=== PATIENT | female | born 1985 | race Caucasian/White ===

== ENCOUNTER 2023-06-24 08:20 | Outpatient (OUT) | payer BC, SELFPAY ==
[2023-06-24 08:45] LABS: Basophils Percent Auto 0.6 % (0.2-2.0); Eosinophils Absolute Auto 0.2 10^3/uL (0.0-0.7); Eosinophils Percent Auto 2.4 % (0.9-7.0); Hematocrit 39.6 % (36.0-48.0); Immature Granulocytes Abs Auto 0.01 10^3/uL (0.00-0.03); Immature Granulocytes Pct Auto 0.1 % (0.0-0.5); Lymphocytes Absolute Auto 2.5 10^3/uL (1.2-3.8); Mean Corpuscular HGB Conc 32.8 g/dL (29.9-35.2); Mean Corpuscular Hemoglobin 28.1 pg (26.7-34.0); Mean Corpuscular Volume 85.5 fL (81.0-99.0); Mean Platelet Volume 9.8 fL (9.5-13.5); Monocytes Absolute Auto 0.6 10^3/uL (0.3-0.8); Monocytes Percent Auto 8.5 % (1.7-12.0); Neutrophils Absolute Auto 3.6 10^3/uL (1.4-6.5); Neutrophils Percent Auto 52.4 % (43.0-75.0); Platelet Count 255 10^3/uL (150-450); Red Blood Count 4.63 10^6/uL (4.20-5.40); Red Cell Distribution Width 12.1 % (11.0-15.0); White Blood Count 6.9 10^3/uL (4.0-11.0)
[2023-06-24 09:07] LABS: Alanine Aminotransferase 14 U/L (14-59); Albumin Globulin Ratio 0.9; Albumin Level 3.6 g/dL (3.4-5.0); Alkaline Phosphatase 82 U/L (46-116); Anion Gap 10.5; Aspartate Amino Transferase 13 U/L (15-37); BUN Creatinine Ratio 16.4; Bilirubin Total 0.6 mg/dL (0.2-1.0); Calcium 8.9 mg/dL (8.5-10.1); Carbon Dioxide 30.6 mmol/L (21.0-32.0); Chloride 102 mmol/L (98-107); Chol HDL Ratio 3.8; Cholesterol 183 mg/dL (<=200); Estimated GFR (African America >60 (>=60); Estimated GFR (Non-African Ame >60 (>=60); Glucose 82 mg/dL (74-106); HDL Cholesterol 48 mg/dL (40-60); LDL Cholesterol Calculated 117.6 mg/dL; Potassium 4.1 mmol/L (3.5-5.1); Sodium 139 mmol/L (136-145); Thyroid Stimulating Hormone 1.955 uIU/mL (0.358-3.740); Total Protein 7.6 g/dL (6.4-8.2); Triglycerides 87 mg/dL (<=150); VLDL CHOLESTEROL 17.4 mg/dL
== END 2023-06-24 08:21 | disposition home or self-care (01) ==
LOC: LAB 08:24
PROVIDERS: PCP Family Medicine; Visit Provider Family Medicine
DX: Z00.00 Encounter for general adult medical examination without abnormal findings (principal)
CPT/HCPCS: 36415; 80053; 80061; 84443; 85025

== ENCOUNTER 2023-07-05 20:07 | Outpatient (REF) | payer BC, SELFPAY ==
--- OUTSIDE RECORDS SUMMARY | 2023-07-05 20:11 | XMS_ITS | CCD ---
Author Organization [facility] Care Team Providers Care Body Liner Name Role Phone Louie Wenier Unavailable FAWWAD, HERNANDEZ H Admitting Unavailable FAWWAD, HERNANDEZ H Attending Unavailable REGINE, DR DENITA Silverio Primary Care Unavailable LOI, DR HERNANDEZ Funez Consulting Unavailable FAWWAD, HERNANDEZ H Consulting Unavailable FAWWAD, HERNANDEZ H Admitting Unavailable FAWWAD, HERNANDEZ H Attending Unavailable REGINE, DR DENITA Silverio Primary Care Unavailable FAWWAD, HERNANDEZ H Admitting Unavailable FACESARIO, H Attending Unavailable REGINE, DR DENITA Silverio Primary Care Unavailable REGINE, DR DENITA Silverio Primary Care Unavailable NEVA, DR ANDREW Admitting Unavailable NEVA, DR ANDREW Attending Unavailable THEA VELEZ Consulting Unavailable DONIS, NEELA Admitting Unavailable DONISNEELA Attending Unavailable REGINE, DR DENITA Silverio Primary Care Unavailable DONIS, NEELA Consulting Unavailable REGINE, DR DENITA Silverio Primary Care Unavailable DONIS, NEELA Admitting Unavailable DONIS, NEELA Attending Unavailable DONIS, NEELA Consulting Unavailable REGINE, DR DENITA Silverio Primary Care Unavailable ANDI QUEVEDO Consulting Unavailable DONIS, NEELA Admitting Unavailable DONIS, NEELA Attending Unavailable DONIS, NEELA Consulting Unavailable REGINE, DR DENITA Silverio Admitting Unavailable REGINE, DR DENITA Silverio Attending Unavailable REGINE, DR DENITA Silverio Primary Care Unavailable REGINE, DR DENITA Silverio Admitting Unavailable REGINE, DR DENITA Silverio Attending Unavailable REGINE, DR DENITA Silverio Primary Care Unavailable REGINE, DR DENITA Silverio Consulting Unavailable CHADD, DR TABARES Admitting Unavailable CHADD, DR TABARES Attending Unavailable REGINE, DR DENITA Silverio Primary Care Unavailable CHADD, DR TABARES Consulting Unavailable Medications Current Medications Medication Drug Class(es) Dates Sig (Normalized) Sig (Original) sodium fluoride 0.011 mg/mg toothpaste (1 source) Sodium Fluoride 5000 PPM 1.1 % Not Available Dental for 30 Days Active Completed/Discontinued Medications Medication Drug Class(es) Dates Sig (Normalized) Sig (Original) acetaminophen 325 mg / oxyCODONE hydrochloride 5 mg oral tablet (1 source) Opioid Agonist take 1 tablet by travon th three times daily as needed for pain oxyCODONE-Acetamino phen 5-325 MG TAKE 1 TABLET BY MOUTH THREE TIMES A DAY NEEDED FOR PAIN Oral for 5 Days Not-Taking Problems Active Problems Problem Classification Problem Date Documented Date Episodic/Chronic Immunizations and screening for infectious disease (1 source) Encounter for screening for human papillomavirus (HPV); Translations: [ENC SCREENING HUMAN PAPILLOMAVIRUS] Onset: 01-21-2022 Episodic Other screening for suspected conditions (not mental disorders or infectious disease) (4 sources) Encounter for screening for malignant neoplasm of cervix; Translations: [ENC SCREENING MALIG NEOPLASM CERV] Onset: 01-20-2022 Episodic Spondylosis; intervertebral disc disorders; other back problems (4 sources) Inflammation of sacroiliac joint; Translations: [Sacroiliitis, not elsewhere classified] Onset: 03-21-2021 Resolved: 07-07-2021 Chronic Unclassified (4 sources) LOW BACK PAIN, UNSPECIFIED; Translations: [LOW BACK PAIN, UNSPECIFIED] Onset: 09-16-2021 Past or Other Problems Problem Classification Problem Date Documented Date Episodic/Chronic Other acquired deformities (1 source) Spondylolysis; Translations: [Spondylolysis, lumbar region] Episodic Spondylosis; intervertebral disc disorders; other back problems (5 sources) Sacrococcygeal disorders, not elsewhere classified; Translations: [SACROCOCCYGEAL DISORDERS NEC] Onset: 09-16-2021 Episodic Unclassified (1 source) Acute bilateral low back pain without sciatica M54.50 Onset: 07-07-2021 Resolved: 07-07-2021 Unclassified (1 source) LOW BACK PAIN, UNSPECIFIED; Translations: [LOW BACK PAIN, UNSPECIFIED] Onset: 09-11-2021 Results Test Name Value Interpretation Reference Range Facil ity PAP ACOG PANEL 2: 30 to 65on 01-27-2022 . . Normal [facility] Comment on above: Result Comment: Perf ormed at: BA Performed By: #### [id number] #### [facility] [address] [place] [address] Dr. Philip Todd DIAGNOSIS: Comment Normal [facility] Comment on above: Result Comment: NEGA TIVE FOR INTRAEPITHELIAL LESION OR MALIGNANCY. Performed at: BA Performed By: #### [id number] #### [facility] [address] [place] [address] Dr. Philip Todd HPV Aptima Negative Normal Negative [facility] Comment on above: Result Comment: This nucleic acid amplification test detects fourteen high-risk HPV types (16,18,31,33,35,39,45,51,52,56,58,59,66,68) without differentiation. Performed at: =G Performed By: #### [id number] #### [facility] [address] [place] [address] Dr. Philip Todd Methodology: Comment Normal [facility] Comment on above: Result Comment: This liquid based ThinPrep(R) pap test was screened with the use of an image guided system. Performed at: WB Performed By: #### [id number] #### [facility] [address] [place] [address] Dr. Philip Todd Note: Comment Normal [facility] Comment on above: Result Comment: The Pap smear is a screening test designed to aid in the detection of premalignant and malignant conditions of the uterine cervix. It is not a diagnostic procedure and should not be used as the sole means of detecting cervical cancer. Both false-positive and false-negative reports do occur. . Performed at: WB Performed By: #### [id number] #### [facility] [address] [place] [address] Dr. Philip Todd Performed by: Comment Normal [facility] [place] [facility] Comment on above: Result Comment: Karthik Bhatt, Starch Dumper (ASCP) Performed at: BA Performed By: #### [id number] #### [facility] [address] [place] [address] Dr. Philip Todd Specimen adequacy: Comment Normal [facility] Comment on above: Result Comment: Sati sfactory for evaluation. Endocervical and/or squamous metaplastic cells (endocervical component) are present. Performed at: BA Performed By: #### [id number] #### [facility] [address] [place], [place] [address] Dr. Philip Todd Age Gdln ACOG Testing 30-65 Normal [facility] Comment on above: Performed By: #### [id number] #### [facility] [address] [place], [place] [address] Dr. Philip Todd PREG HCG QUALon 09-11-2021 , QUAL Negative Normal NEGATIVE [facility] Comment on above: Performed By: #### P REG #### [facility] [address] [place], [place] [address] Dr. Philip Todd MRI Lumbar Spine w/oon 06-10 MRI Lumbar Spine w/o HISTORY: TECHNIQUE: Routine lumbosacral spine MR protocol WITHOUT gadolinium. COMPARISON: None. RESULT: Counting reference: Lumbosacral junction. For the purposes of this report, L5-S1 is considered the last well-formed disc space. Alignment: Alignment is anatomic. Disks: The intervertebral disk spaces are maintained from L1-L5. There is disc desiccation and mild disc space narrowing at L5-S1. Bone marrow signal/fracture: No evidence of pathologic marrow infiltration. No evidence of prior fracture. Conus: The conus is within normal limits of signal intensity and morphology. Paraspinal soft tissues: Paraspinal soft tissues are within normal limits. Lower thoracic spine: Visualized lower thoracic canal and foramina are without significant narrowing. T12-L1: No significant canal or foraminal narrowing. L1-L2: No significant canal or foraminal narrowing. L2-L3: No significant canal or foraminal narrowing. L3-L4: No significant canal or foraminal narrowing. L4-L5: No significant canal or foraminal narrowing. There is mild bilateral facet arthrosis. L5-S1: There is a 5 mm symmetric base bulge and there are annular fissures. There is mild bilateral facet arthrosis and mild ligamentum flavum hypertrophy of mild central canal and mild bilateral neuroforaminal narrowing. Sacrum and iliac wings: The visualized sacrum and iliac wings are within normal limits. The presacral soft tissues are normal in appearance. IMPRESSION: There is no acute fracture subluxation. There is spondylosis at L5-S1 with disc desiccation, mild narrowing, annular fissures and mild bilateral facet arthrosis. There is no significant central canal or neural foramina at any level. Report reported and signed by NITZA TIAN on 06/10/2021 1452 Normal [facility] Corporate Wellness Coordinator CBC AUTO DIFFon 06-04-2021 BASO # 0.0 103/ul Normal 0.0-0.1 [facility] Comment on above: Performed By: #### C BC #### [facility] [address] [place] [address] [address] Philip Todd Basophils/100 WBC (Bld) 0.4 % Normal 0.2-2.0 [facility] Comment on above: Performed By: #### C BC #### [facility] [address] [place] [address] [address] Philip Todd EO # 0.2 103/ul Normal 0.0-0.7 [facility] Comment on above: Performed By: #### C BC #### [facility] [address] [place] [address] [address] Philip Todd Eosinophils/100 WBC (Bld) 2.5 % Normal 0.9-7.0 [facility] Comment on above: Performed By: #### C BC #### [facility] [address] [place] [address] [address] Philip Todd Erythrocyte distribution width (RBC) [Ratio] 12.5 % Normal 11.0-15.0 [facility] Comment on above: Performed By: #### C BC #### [facility] [address] [place] [address] [address] Philip Todd Hematocrit (Bld) [Volume fraction] 42.1 % Normal 36.0-48.0 [facility] Comment on above: Performed By: #### C BC #### [facility] [address] [address] [address] Philip Todd Hemoglobin (Bld) [Mass/Vol] 13.9 g/dL Normal 12.0-16.0 [facility] Comment on above: Performed By: #### C BC #### [facility] [address] [address] [address] Philip Todd IG # 0.01 10e3/ul Normal 0.00-0.03 [facility] Comment on above: Performed By: #### C BC #### [facility] [address] [place] [address] Dr. Philip Todd IG % 0.1 % Normal 0.0-0.5 [facility] Comment on above: Performed By: #### C BC #### [facility] [address] [place] [address] Dr. Philip Todd LYMPH # 2.5 103/ul Normal 1.2-3.8 [facility] Comment on above: Performed By: #### C BC #### [facility] [address] [place] [address] Dr. Philip Todd Lymphocytes/100 WBC (Bld) 34.7 % Normal 20.5-60.0 [facility] Comment on above: Performed By: #### C BC #### [facility] [address] [place] [address] Dr. Philip Todd MANUAL DIFF REQ NO Normal [facility] Comment on above: Performed By: #### C BC #### [facility] [address] [place] [address] Dr. Philip Todd MCH (RBC) [Entitic mass] 28.2 pg Normal 26.7-34.0 [facility] Comment on above: Performed By: #### C BC #### [facility] [address] [place] [address] Dr. Philip Todd MCHC (RBC) [Mass/Vol] 33.0 g/dL Normal 29.9-35.2 [facility] Comment on above: Performed By: #### C BC #### [facility] [address] [place] [address] Dr. Philip Todd MCV (RBC) [Entitic vol] 85.4 fL Normal 81.0-99.0 [facility] Comment on above: Performed By: #### C BC #### [facility] [address] [place] [address] Dr. Philip Todd MONO # 0.6 103/ul Normal 0.3-0.8 [facility] Comment on above: Performed By: #### C BC #### [facility] [address] [address] [address] Philip Todd Monocytes/100 WBC (Bld) 8.5 % Normal 1.7-12.0 [facility] Comment on above: Performed By: #### C BC #### [facility] [address] [place] [address] Dr. Philip Todd NEUT # 3.9 103/ul Normal 1.4-6.5 [facility] Comment on above: Performed By: #### C BC #### [facility] [address] [place] [address] Dr. Philip Todd Neutrophils/100 WBC (Bld) 53.8 % Normal 43.0-75.0 [facility] Comment on above: Performed By: #### C BC #### [facility] [address] [place] [address] Dr. Philip Todd Platelet mean volume (Bld) [Entitic vol] 10.0 fL Normal 9.5-13.5 [facility] Comment on above: Performed By: #### C BC #### [facility] [address] [place] [address] Dr. Philip Todd PLT 282 103/ul Normal 150-450 [facility] Comment on above: Performed By: #### C BC #### [facility] [address] [place] [address] Dr. Philip Todd RBC 4.93 106/ul Normal 4.20-5.40 [facility] Comment on above: Performed By: #### C BC #### [facility] [address] [place] [address] Dr. Philip Todd WBC 7.3 103/ul Normal 4.0-11.0 [facility] Comment on above: Performed By: #### C BC #### [facility] [address] [place] [address] Dr. Philip Todd LIPID PROFILEon 06-04-2021 CHOL-HDL RATIO NORM SEE BELOW Normal [facility] Comment on above: Result Comment: 3.3 - 4.4 LOW RISK 4.4 - 7.1 AVERAGE RISK 7.1 - 11.0 MODERATE RISK >11.0 HIGH RISK Performed By: #### L IPID, BMP #### [facility] [address] [place] [address] Dr. Philip Todd Cholesterol [Mass/Vol] 200 mg/dL Normal <=200 [facility] Comment on above: Performed By: #### L IPID, BMP #### [facility] [address] [address] [address] Philip Todd Cholesterol in HDL [Mass/Vol] 52 mg/dL Normal [facility] Comment on above: Performed By: #### L IPID, BMP #### [facility] [address] [place] [address] Dr. Philip Todd Cholesterol in LDL [Mass/Vol] 131.6 mg/dL Normal [facility] Comment on above: Performed By: #### L IPID, BMP #### [facility] [address] [place] [address] Dr. Philip Todd Cholesterol.total/ Cholesterol in HDL [Mass ratio] 3.8 {ratio} Normal [facility] Comment on above: Performed By: #### L IPID, BMP #### [facility] [address] [place] [address] Dr. Philip Todd HDL NORMAL > or = 60 mg/dl - LO W CARDIOVASCULAR RISK <40 mg/dl - HIGH CARDIOVASCULAR RISK Normal [facility] Comment on above: Performed By: #### L IPID, BMP #### [facility] [address] [place] [address] Dr. Philip Todd LDL CALC NORMAL SEE BELOW Normal [facility] Comment on above: Result Comment: <100 mg/dl OPTIMAL 100 - 129 mg/dl NEAR OR ABOVE OPTIMAL 130 - 159 mg/dl BORDERLINE HIGH 160 - 189 mg/dl HIGH >190 mg/dl VERY HIGH Performed By: #### L IPID, BMP #### [facility] [address] [place] [address] Dr. Philip Todd Triglyceride [Mass/Vol] 82 mg/dL Normal <=150 [facility] Comment on above: Performed By: #### L IPID, BMP #### [facility] [address] [place] [address] Dr. Philip Todd VLDL CALC 16.4 mg/dL Normal [facility] Comment on above: Performed By: #### L IPID, BMP #### [facility] [address] [place] [address] Dr. Philip Todd PROF CHEM 8 (BAS METB)on Anion gap [Moles/Vol] 13.6 mmol/L Normal [facility] Comment on above: Performed By: #### L IPID, BMP #### [facility] [address] [place] [address] Dr. Philip Todd Calcium [Mass/Vol] 9.6 mg/dL Normal 8.4-10.2 [facility] Comment on above: Performed By: #### L IPID, BMP #### [facility] [address] [place] [address] Dr. Philip Todd Chloride [Moles/Vol] 103 mmol/L Normal 98-107 [facility] Comment on above: Performed By: #### L IPID, BMP #### [facility] [address] [place] [address] Dr. Philip Todd CO2 [Moles/Vol] 28.4 mmol/L Normal 22.0-30.0 [facility] Comment on above: Performed By: #### L IPID, BMP #### [facility] [address] [place] [address] Dr. Philip Todd Creatinine [Mass/Vol] 0.65 mg/dL Normal 0.52-1.04 [facility] Comment on above: Performed By: #### L IPID, BMP #### [facility] [address] [place] [address] Dr. Philip Todd EGFR-AF BHUTANESE >60 Normal >=60 [facility] Comment on above: Performed By: #### L IPID, BMP #### [facility] [address] [place] [address] Dr. Philip Todd EGFR-NON AF BHUTANESE >60 Normal >=60 [facility] Comment on above: Performed By: #### L IPID, BMP #### [facility] [address] [place] [address] [address] Philip Todd Glucose [Mass/Vol] 94 mg/dL Normal 74-106 [facility] [place] [facility] Comment on above: Performed By: #### L IPID, BMP #### [facility] [address] [place] [address] Dr. Philip Todd Potassium [Moles/Vol] 4.0 mmol/L Normal 3.4-5.0 [facility] Comment on above: Performed By: #### L IPID, BMP #### [facility] [address] [place] [address] [address] Philip Todd Sodium [Moles/Vol] 141 mmol/L Normal 137-145 [facility] Comment on above: Performed By: #### L IPID, BMP #### [facility] [address] [place] [address] Dr. Philip Todd Urea nitrogen [Mass/Vol] 15.0 mg/dL Normal 7.0-17.0 [facility] Comment on above: Performed By: #### L IPID, BMP #### [facility] [address] [place] [address] Dr. Philip Todd Urea nitrogen/Creatinin e [Mass ratio] 23.1 mg/mg Normal [facility] Comment on above: Performed By: #### L IPID, BMP #### [facility] [address] [place] [address] Dr. Philip Todd XR LSPINE 2_3 VIEWSon 2020 XR LSPINE 2_3 VIEWS EXAMINATION: XR LSPINE 2_3 VIEWS HISTORY: Low back pain for one week increasing in severity COMPARISON: No relevant comparison available. FINDINGS: BONES: No significant spondylosis, scoliosis, fracture, or visible bony lesion. DISC SPACES: Slight narrowing L5-S1. PARASPINOUS: Negative. No paraspinous abnormality is seen. OTHER: Negative. IMPRESSION: 1. L5-S1 mild degenerative disc disease. 2. No appreciable acute abnormality. Electronically authenticated by: HERNANDEZ MONSIVAIS Date: 2021-03-18 07:23 Normal [facility] Vital Signs Date Time Vital Sign Value Performing Clinician Faci lity 07-07-2021 11:00-0400 Body height 154.94 cm Louie Weiner Other [facility] Other 07-07-2021 11:00-0400 Body mass index (BMI) [Ratio] 27.39 kg/m2 Louie Weiner Other [facility] Other 07-07-2021 11:00-0400 Body weight 65.77 kg Louie Weiner Other [facility] Other Encounters Encounter Date Encounter Type Care Provider Facility Start: 01-20-2022 End: 01-20-[address] RAYSA FLORENTINO Facility:[facility] Start: 09-25-2021 End: 09-26-[address] DENITA WEINER Facility:[facility] Start: 09-11-2021 End: 09-11-2021 ambulatory NEELA DYKES Facility:[facility] Start: 07-17-2021 End: 07-18-[address] DENITA WEINER Facility:[facility] Start: 07-07-2021 End: 07-07-2021 ambulatory Louie Weiner Other [facility] Other Start: 07-07-2021 Office outpatient ne w 30 minutes Louie Weiner [facility] [place], operated by [facility] Start: 06-08-[address] DENITA WEINER Facil ity:[facility] Start: 06-05-2021 Encounter for genera l adult medical examination without abnormal findings DR DENITA WEINER [facility] Start: 06-04-2021 End: 06-05-[address] DENITA WEINER Facility:[facility] Start: 06-04-2021 End: 06-05-2021 Encounter for general adult medical examination without abnormal findings DR DENITA WEINER Facility:[facility] Start: 04-19-2021 End: 05-07-2021 ambulatory SHAIKH Chioma ARELLANO Facility:[facility] Start: 03-19-2021 End: 04-17-2021 ambulatory SHAIKH Chioma ARELLANO Facility:[facility] Start: 03-18-2021 End: 03-18-[address] DENITA WEINER Facility:[facility] Start: 03-17-2021 End: 03-18-2021 ambulatory SHAIKH Chioma COREYCESARIO Facility:[facility] Payers Date Payer Category Payer Unknown [id number] 2.16.84 [id number] 1983 Unknown [id number] 2.16.84 [id number] 1983 Unknown [id number] 2.16.84 [id number] 1983 Unknown [id number] 2.16.84 [id number] 1983 Unknown [id number] 2.16.84 [id number] 1983 Unknown [id number] 2.16.84 [id number] 1983 Unknown [id number] 2.16.84 [id number] 1983 Unknown [id number] 2.16.84 [id number] 1983 Unknown [id number] 2.16.84 [id number] 1983 Unknown [id number] 2.16.84 [id number] 1961 [facility] [id number] 1961 Self-pay [id number] Unknown [id number] Social History Date Type Detail Facility Unknown if ever smoked [facility] Other Sex Assigned At Sex Assigned At Bir th [facility] Other Evaluation note 07-07-2021 Note Date & Type Note Facility 07-07-2021 Evaluation note Encounter Date Diagnosis Assessment Notes Jun, Inflammation of left sacroiliac joint (ICD-10 - M46.1) I have independently reviewed the MRI of the lumbar spine and the reports. The patient has degenerative changes at L5-S1 with minimal disc bulge normal foramen normal canal. There are no options for surgical intervention in this patient. She has significant left sacroiliac tenderness. I recommend the patient pursue pain management. I told her there are no surgical options. I personally sent a note for the patient to give to her current pain management doctor, I suggested a left sacroiliac injection be done possibly an epidural secondary Jun, Acute bilateral low back pain without sciatica (ICD-10 - M54.50) [facility] Other History general Narrative - Reported Note Date & Type Note Facility History general Narrative - Reported Type Surgical History wisdom teeth Surgical History [facility] Hospitalization History childbirth [facility] Other Reason for visit Narrative Note Date & Type Note Facility Reason for visit Narrative Referral Denita Kapoor Lumbar Spondylolysis [facility] Other Summary Purpose Family History No Family History Records FoundNo Family History Records Found Advance Directives No Advanced Directives Records FoundNo Advanced Directives Records Found Additional Source Comments INFORMATION SOURCE (unrecogn ized section and content) DATE CREATED AUTHOR 06/11/2021 [facility] dical Specialist DATE CREATED AUTHOR AUTHOR'S ORGANIZ ATHAIR 01/27/2022 [facility] FOR RECORDS PERTAINING TO PATIENTS WHO ARE OR HAVE BEEN ENROLLED IN A CHEMICAL DEPENDENCY/SUBSTANCEABUSE PROGRAM, SOME INFORMATION MAY BE OMITTED. This clinical summary was aggregated from multiple sources. Caution should be exercised in using it in the provision of clinical care. This summary normalizes information from multiple sources, and as a consequence, information in this document may materially change the coding, format and clinical context of patient data. In addition, data may be omitted in some cases. CLINICAL DECISIONS SHOULD BE BASED ON THE PRIMARY CLINICAL RECORDS. [employer] provides no warranty or guarantee of the accuracy or completeness of information in this document.
[2023-07-08 15:10] LABS: Age Gdln ACOG Testing Note (.); HPV Aptima Negative (Negative); IGP, Aptima HPV, rfx 16/18,45 Note (.)
== END 2023-07-05 20:08 | disposition home or self-care (01) ==
LOC: LAB 20:07
PROVIDERS: PCP Family Medicine; Visit Provider Obstetrics & Gynecology
DX: Z01.419 Encounter for gynecological examination (general) (routine) without abnormal findings (principal)
CPT/HCPCS: 87624; G0145

== ENCOUNTER 2023-12-21 09:38 | Outpatient (OUT) | payer BC, SELFPAY ==
--- NOTE | 2023-12-21 09:43 | MM_ITS ---
Patient Name: HELLEN BELL MR#: [id number] : 1985 Exam Date: 12/21/2023 Ordering Doctor: DR Esteban Dupree . RADIOLOGY REPORT PROCEDURE: MM TOMOSYNTHESIS SCREENING BI COMPARISON: None. INDICATIONS: breast cancer screening by mammogram Z12.31 Calculator Name NCI Breast Cancer Risk Assessment Tool 5 Year Breast Cancer Risk 1.20% Lifetime Breast Cancer Risk 20.40% Personal Breast Cancer No Personal Ovarian Cancer No Treatments None Family Cancers Mother with breast cancer at age 67; Uncle-maternal with lung cancer at age ~55. LOCATION: [facility] BREAST COMPOSITION: The breasts are heterogeneously dense,which may obscure small masses. FINDINGS: DIAGNOSTIC CATEGORY 2--BENIGN FINDING: RIGHT BREAST: No significant suspicious finding. Posterior upper-outer quadrant small benign appearing lymph nodes. LEFT BREAST: No significant suspicious finding. 6 o'clock central breast benign-appearing lymph node. RECOMMENDATIONS: ROUTINE MAMMOGRAM AND CLINICAL EVALUATION IN 12 MONTHS. PLEASE NOTE: A NORMAL MAMMOGRAM DOES NOT EXCLUDE THE POSSIBILITY OF BREAST CANCER. A CLINICALLY SUSPICIOUS PALPABLE LUMP SHOULD BE BIOPSIED. Dictated by: Sravan Ch M.D. on 12/23/2023 at 12:43 Approved by: Sravan Ch M.D. on 12/23/2023 at 12:45
--- OUTSIDE RECORDS SUMMARY | 2023-12-21 10:01 | XMS_ITS | CCD ---
Author Organization [facility] Care Team Providers Care Flame Planer Name Role Phone Louie Weiner Unavailable FAWWAD, HERNANDEZ H Admitting Unavailable FAWWAD, HERNANDEZ H Attending Unavailable REGINE, DR DENITA Silverio Primary Care Unavailable LOI, DR HERNANDEZ Funez Consulting Unavailable FAWWAD, HERNANDEZ H Consulting Unavailable FAWWAD, HERNANDEZ H Admitting Unavailable FAWWAD, HERNANDEZ H Attending Unavailable REGINE, DR DENITA Silverio Primary Care Unavailable FAWWAD, HERNANDEZ H Admitting Unavailable FAWWAD, HERNANDEZ H Attending Unavailable REGINE, DR DENITA Silverio Primary Care Unavailable REGINE, DR DENITA Silverio Primary Care Unavailable NEVA, DR ANDREW Admitting Unavailable HAY, DR ANDREW Attending Unavailable THEA VELEZ Consulting Unavailable DONIS, NEELA Admitting Unavailable DONIS, NELEA Attending Unavailable REGINE, DR DENITA Silverio Primary Care Unavailable DONIS, NEELA Consulting Unavailable REGINE, DR DENITA Silverio Primary Care Unavailable DONIS, NEELA Admitting Unavailable DONIS, NEELA Attending Unavailable DONISNEELA Consulting Unavailable REGINE, DR DENITA Silverio Primary [...] Care Unavailable CHADD, DR TABARES Consulting Unavailable ROBBY CARBAJAL Attending Unavailable Medications Current Medications Medication Drug Class(es) [...] to 63on 01-27-2022 . . Normal [facility] Comment on above: Result Comment: Perf ormed at: BA Performed By: #### [id number] #### [facility] [address] [place] [address] Dr. Philip Todd DIAGNOSIS: Comment Normal [facility] Comment on above: Result Comment: NEGA TIVE FOR INTRAEPITHELIAL LESION OR MALIGNANCY. Performed at: BA Performed By: #### [id number] #### [facility] [address] [place] [address] Dr. Philip Todd HPV Aptima Negative Normal Negative [facility] Comment on above: Result Comment: This nucleic acid amplification test detects fourteen high-risk HPV types (16,18,31,33,35,39,45,51,52,56,58,59,66,68) without differentiation. Performed at: =G Performed By: #### [id number] #### [facility] [address] [place] [address] Dr. Philip Todd Methodology: Comment Normal [facility] Comment on above: Result Comment: This liquid based ThinPrep(R) pap test was screened with the use of an image guided system. Performed at: WB Performed By: #### [id number] #### [facility] [address] [place] [address] Dr. Philip Todd Note: Comment Normal [facility] Comment on above: Result Comment: The Pap smear is a screening test designed to aid in the detection of premalignant and malignant conditions of the uterine cervix. It is not a diagnostic procedure and should not be used as the sole means of detecting cervical cancer. Both false-positive and false-negative reports do occur. . Performed at: WB Performed By: #### [id number] #### [facility] [address] [place] [address] Dr. Philip Todd Performed by: Comment Normal [facility] Comment on above: Result Comment: Karthik Bhatt, Liquor Clerk (ASCP) Performed at: BA Performed By: #### [id number] #### [facility] [address] [place] [address] Dr. Philip Todd Specimen adequacy: Comment Normal [facility] Comment on above: Result Comment: Sati sfactory for evaluation. Endocervical and/or squamous metaplastic cells (endocervical component) are present. Performed at: BA Performed By: #### [id number] #### [facility] [address], [place] [address] Dr. Philip Todd Age Gdln ACOG Testing 30-65 Normal [facility] Comment on above: Performed By: #### [id number] #### [facility] [address], [place] [address] Dr. Philip Todd PREG HCG QUALon 09-11-2021 , QUAL Negative Normal NEGATIVE [facility] Comment on above: Performed By: #### P REG #### [facility] [address] [place], [place] [address] Dr. Philip Todd MRI Lumbar Spine w/oon [...] by NITZA TIAN on 06/10/2021 1452 Normal [facility] Vice President Research CBC AUTO DIFFon 06-04-2021 BASO # 0.0 103/ul Normal 0.0-0.[address] [facility] Comment on above: Performed By: #### C BC #### [facility] [address] [address] [address] Philip Todd Basophils/100 WBC (Bld) 0.4 % Normal 0.2-2.[address] [facility] Comment on above: Performed By: #### C BC #### [facility] [address] [place] [address] Dr. Philip Todd EO # 0.2 103/ul Normal 0.0-0.[address] [facility] Comment on above: Performed By: #### C BC #### [facility] [address] [place] [address] Dr. Philip Todd Eosinophils/100 WBC (Bld) 2.5 % Normal 0.9-7.[address] [facility] Comment on above: Performed By: #### C BC #### [facility] [address] [place] [address] Dr. Philip Todd Erythrocyte distribution width (RBC) [Ratio] 12.5 % Normal 11.0-15.[address] [facility] Comment on above: Performed By: #### C BC #### [facility] [address] [place] [address] Dr. Philip oTdd Hematocrit (Bld) [Volume fraction] 42.1 % Normal 36.0-48.[address] [facility] Comment on above: Performed By: #### C BC #### [facility] [address] [place] [address] Dr. Philip Todd Hemoglobin (Bld) [Mass/Vol] 13.9 g/dL Normal 12.0-16.[address] [facility] Comment on above: Performed By: #### C BC #### [facility] [address] [place] [address] Dr. Philip Todd IG # 0.01 10e3/ul Normal 0.00-0.03 [facility] Comment on above: Performed By: #### C BC #### [facility] [address] [place] [address] Dr. Philip Todd IG % 0.1 % Normal 0.0-0.5 [facility] Comment on above: Performed By: #### C BC #### [facility] [address] [place] [address] Dr. Philip Todd LYMPH # 2.5 103/ul Normal 1.2-3.8 [facility] Comment on above: Performed By: #### C BC #### [facility] [address] [place] [address] Dr. Philip Todd Lymphocytes/100 WBC (Bld) 34.7 % Normal 20.5-60.0 [facility] Comment on above: Performed By: #### C BC #### [facility] [address] [place] [address] Dr. Philip Todd MANUAL DIFF REQ NO Normal [facility] Comment on above: Performed By: #### C BC #### [facility] [address] [place] [address] Dr. Philip Todd MCH (RBC) [Entitic mass] 28.2 pg Normal 26.7-34.0 [facility] Comment on above: Performed By: #### C BC #### [facility] [address] [place] [address] Dr. Philip Todd MCHC (RBC) [Mass/Vol] 33.0 g/dL Normal 29.9-35.2 [facility] Comment on above: Performed By: #### C BC #### [facility] [address] [place] [address] Dr. Philip Todd MCV (RBC) [Entitic vol] 85.4 fL Normal 81.0-99.0 [facility] Comment on above: Performed By: #### C BC #### [facility] [address] [place] [address] Dr. Philip Todd MONO # 0.6 103/ul Normal 0.3-0.8 [facility] Comment on above: Performed By: #### C BC #### [facility] [address] [place] [address] Dr. Philip Todd Monocytes/100 WBC (Bld) 8.5 % Normal 1.7-12.0 [facility] Comment on above: Performed By: #### C BC #### [facility] [address] [place] [address] Dr. Philip Todd NEUT # 3.9 103/ul Normal 1.4-6.5 [facility] Comment on above: Performed By: #### C BC #### [facility] [address] [place] [address] Dr. Philip Todd Neutrophils/100 WBC (Bld) 53.8 % Normal 43.0-75.0 [facility] Comment on above: Performed By: #### C BC #### [facility] [address] [place] [address] Dr. Philip Todd Platelet mean volume (Bld) [Entitic vol] 10.0 fL Normal 9.5-13.[address] [facility] Comment on above: Performed By: #### C BC #### [facility] [address] [place] [address] Dr. Philip Todd PLT 282 103/ul Normal 150-[address] [facility] Comment on above: Performed By: #### C BC #### [facility] [address] [place] [address] Dr. Philip Todd RBC 4.93 106/ul Normal 4.20-5.[address] [facility] Comment on above: Performed By: #### C BC #### [facility] [address] [place] [address] Dr. Philip Todd WBC 7.3 103/ul Normal 4.0-11.[address] [facility] Comment on above: Performed By: #### C BC #### [facility] [address] [place] [address] Dr. Philip Todd LIPID PROFILEon 06-04-2021 CHOL-HDL RATIO NORM SEE BELOW Normal [facility] Comment on above: Result Comment: 3.3 - 4.4 LOW RISK 4.4 - 7.1 AVERAGE RISK 7.1 - 11.0 MODERATE RISK >11.0 HIGH RISK Performed By: #### L IPID, BMP #### [facility] [address] [address] [address] Philip Todd Cholesterol [Mass/Vol] 200 mg/dL Normal <=200 [facility] Comment on above: Performed By: #### L IPID, BMP #### [facility] [address] [address] [address] Philip Todd Cholesterol in HDL [Mass/Vol] 52 mg/dL Normal [facility] Comment on above: Performed By: #### L IPID, BMP #### [facility] [address] [place] [address] Dr. Philip Todd Cholesterol in LDL [Mass/Vol] 131.6 mg/dL Normal [facility] Comment on above: Performed By: #### L IPID, BMP #### [facility] [address] [place] [address] Dr. Philip Todd Cholesterol.total/ Cholesterol in HDL [Mass ratio] 3.8 {ratio} Normal [facility] Comment on above: Performed By: #### L IPID, BMP #### [facility] [address] [place] [address] Dr. Philip Todd HDL NORMAL > or = 60 mg/dl - LO W CARDIOVASCULAR RISK <40 mg/dl - HIGH CARDIOVASCULAR RISK Normal [facility] Comment on above: Performed By: #### L IPID, BMP #### [facility] [address] [place] [address] Dr. Philip Todd LDL CALC NORMAL SEE BELOW Normal [facility] Comment on above: Result Comment: <100 mg/dl OPTIMAL 100 - 129 mg/dl NEAR OR ABOVE OPTIMAL 130 - 159 mg/dl BORDERLINE HIGH 160 - 189 mg/dl HIGH >190 mg/dl VERY HIGH Performed By: #### L IPID, BMP #### [facility] [address] [address] [address] Philip Todd Triglyceride [Mass/Vol] 82 mg/dL Normal <=150 [facility] Comment on above: Performed By: #### L IPID, BMP #### [facility] [address] [place] [address] Dr. Philip Todd VLDL CALC 16.4 mg/dL Normal [facility] Comment on above: Performed By: #### L IPID, BMP #### [facility] [address] [place] [address] Dr. Philip Todd PROF CHEM 8 (BAS METB)on Anion gap [Moles/Vol] 13.6 mmol/L Normal [facility] Comment on above: Performed By: #### L IPID, BMP #### [facility] [address] [place] [address] Dr. Philip Todd Calcium [Mass/Vol] 9.6 mg/dL Normal 8.4-10.2 [facility] Comment on above: Performed By: #### L IPID, BMP #### [facility] [address] [place] [address] Dr. Philip Todd Chloride [Moles/Vol] 103 mmol/L Normal 98-107 [facility] Comment on above: Performed By: #### L IPID, BMP #### [facility] [address] [place] [address] Dr. Philip Todd CO2 [Moles/Vol] 28.4 mmol/L Normal 22.0-30.0 [facility] Comment on above: Performed By: #### L IPID, BMP #### [facility] [address] [place] [address] Dr. Philip Todd Creatinine [Mass/Vol] 0.65 mg/dL Normal 0.52-1.04 [facility] Comment on above: Performed By: #### L IPID, BMP #### [facility] [address] [place] [address] Dr. Philip Todd EGFR-AF GREEK >60 Normal >=60 [facility] Comment on above: Performed By: #### L IPID, BMP #### [facility] [address] [place] [address] Dr. Philip Todd EGFR-NON AF GREEK >60 Normal >=[address] [facility] Comment on above: Performed By: #### L IPID, BMP #### [facility] [address] [place] [address] Dr. Philip Todd Glucose [Mass/Vol] 94 mg/dL Normal 74-106 [facility] Comment on above: Performed By: #### L IPID, BMP #### [facility] [address] [place] [address] Dr. Philip Todd Potassium [Moles/Vol] 4.0 mmol/L Normal 3.4-5.0 [facility] Comment on above: Performed By: #### L IPID, BMP #### [facility] [address] [place] [address] Dr. Pih[place] Todd Sodium [Moles/Vol] 141 mmol/L Normal 137-145 [facility] Comment on above: Performed By: #### L IPID, BMP #### [facility] [address] [place] [address] Dr. Philip Todd Urea nitrogen [Mass/Vol] 15.0 mg/dL Normal 7.0-17.0 [facility] Comment on above: Performed By: #### L IPID, BMP #### [facility] [address] [place] [address] Dr. Philip Todd Urea nitrogen/Creatinin e [Mass ratio] 23.1 mg/mg Normal [facility] Comment on above: Performed By: #### L IPID, BMP #### [facility] [address] [place] [address] Dr. Philip Todd XR LSPINE 2_3 VIEWSon [...] by: HERNANDEZ MONSIVAIS Date: 2021-03-18 07:23 Normal [facility] Vital Signs Date Time Vital Sign Value Performing Clinician Faci lity 07-07-2021 11:00-0400 Body height 154.94 cm Louie Weiner Other [place] [employer] Other 07-07-2021 11:00-0400 Body mass index (BMI) [Ratio] 27.39 kg/m2 Louie Weiner Other [facility] Other 07-07-2021 11:00-0400 Body weight 65.77 kg Louie Weiner Other [place] [employer] Other Encounters Encounter Date Encounter Type Care Provider Facility Start: 07-05-2023 End: 07-05-2023 ambulatory ROBBY SOLOMON Not Available Start: 01-20-2022 End: 01-20-[address] RAYSA FLORENTINO Facility:[facility] Start: 09-25-2021 End: 09-26-[address] DENITA WEINER Facility:[facility] Start: 09-11-2021 End: 09-11-2021 ambulatory NEELA DYKES Facility:[facility] Start: 07-17-2021 End: 07-18-[address] DENITA WEINER Facility:[facility] Start: 07-07-2021 End: 07-07-2021 ambulatory Louie Weiner Other [place] [employer] Other Start: 07-07-2021 Office outpatient ne w 30 minutes Louie Weiner [facility] Start: 06-08-[address] DENITA WEINER Facil ity:[facility] Start: 06-05-2021 Encounter for genera l adult medical examination without abnormal findings DR DENITA WEINER [facility] Start: 06-04-2021 End: 06-05-[address] DENITA WEINER Facility:[facility] Start: 06-04-2021 End: 06-05-2021 Encounter for general adult medical examination without abnormal findings DR DENITA WEINER Facility:[facility] Start: 04-19-2021 End: 05-07-2021 ambulatory SHAIKH Chioma ARELLANO Facility:[facility] Start: 03-19-2021 End: 04-17-2021 ambulatory SHAIKH Chioma ARELLANO Facility:[facility] Start: 03-18-2021 End: 03-18-[address] DENITA WEINER Facility:[facility] Start: 03-17-2021 End: 03-18-2021 ambulatory SHAIKH Chioma ARELLANO Facility:[facility] Payers Date Payer Category Payer Unknown [id number] 1985 Unknown [id number] 2.16.84 [id number] 1985 Unknown [id number] 2.16.84 [id number] 1985 Unknown [id number] 2.16.84 [id number] 1985 Unknown [id number] 2.16.84 [id number] 1985 Unknown [id number] 2.16.84 [id number] 1985 Unknown [id number] 2.16.84 [id number] 1985 Unknown [id number] 2.16.84 [id number] 1985 Unknown [id number] 2.16.84 [id number] 1983 Unknown [id number] 2.16.84 [id number] 1985 Unknown [id number] 2.16.84 [id number] 1985 Unknown [id number] 2.16.84 [id number] 1961 [facility] [id number] 1961 Self-pay [id number] Unknown [id number] Social History Date Type Detail Facility Unknown if ever smoked [facility] Other Sex Assigned At Sex Assigned At Bir th [facility] Other Evaluation note 07-07-2021 Note Date & [...] back pain without sciatica (ICD-10 - M54.50) [facility] Other History general Narrative - Reported Note Date & Type Note Facility History general Narrative - Reported Type Surgical History wisdom teeth Surgical History D&C Hospitalization History childbirth [facility] Other Reason for visit Narrative Note Date & Type Note Facility Reason for visit Narrative Referral Denita Kapoor Lumbar Spondylolysis [facility] Other Summary Purpose Family History No Family History Records FoundNo Family History Records FoundNo Family History Records Found Advance Directives No Advanced Directives Records FoundNo Advanced Directives Records FoundNo Advanced Directives Records Found Additional Source Comments INFORMATION SOURCE (unrecogn ized section and content) DATE CREATED AUTHOR 06/11/2021 [facility] dical Specialist DATE CREATED AUTHOR AUTHOR'S ORGANIZ ATION 01/27/2022 [facility] DATE CREATED AUTHOR AUTHOR'S ORGANIZ ATION 07/06/2023 [facility] dical Specialists [facility] FOR RECORDS PERTAINING TO PATIENTS WHO ARE [...] BE BASED ON THE PRIMARY CLINICAL RECORDS. [facility] [facility]. provides no warranty or guarantee of the accuracy or completeness of information in this document.
== END 2023-12-21 09:39 | disposition home or self-care (01) ==
LOC: MAMMO 09:38
PROVIDERS: PCP Family Medicine; Visit Provider Obstetrics & Gynecology
DX: Z12.31 Encounter for screening mammogram for malignant neoplasm of breast (principal); Z80.3 Family history of malignant neoplasm of breast; Z80.1 Family history of malignant neoplasm of trachea, bronchus and lung
CPT/HCPCS: 77063; 77067

== ENCOUNTER 2024-07-18 14:53 | Outpatient (REF) | payer BC, SELFPAY ==
--- OUTSIDE RECORDS SUMMARY | 2024-07-18 15:07 | XMS_ITS | CCD ---
Author Organization [facility] Care Team Providers Care Production Line Technician Name Role Phone Louie Weiner Unavailable FAWWAD, [...] NEELA Admitting Unavailable DONIS, NEELA Attending Unavailable REGINE, DR DENITA Silverio Primary [...] Unavailable REGINE, DR DENITA Silverio Consulting Unavailable NELDAASILeonora, DR TABARES Admitting Unavailable KARKAEL, DR TABARES Attending Unavailable REGINE, DR DENITA Silverio Primary Care Unavailable CHADD, DR TABARES Consulting Unavailable NENA CARBAJAL Attending Unavailable Denita Weiner MD Primary Care Provider [phone] Medications Current Medications Medication Drug Class(es) Dates Sig (Normalized) Sig (Original) MULTIPLE VITAMIN IV (3 sources) MULTIPLE VITAMIN IV 1 (one) time each day at the same time Active Multivitamin (Daily Multi-Vitamin) tablet (1 source) Start: 07-09-2024 take 1 tablet by mouth once daily Multivitamin (Daily Multi-Vitamin) tablet Active 1 TAB PO Daily July 09, 2024 12:00am sodium fluoride 0.011 mg/mg toothpaste (1 source) Sodium Fluoride 5000 PPM 1.1 % Not Available Dental for 30 Days Active Completed/Discontinued Medications Medication Drug Class(es) Dates Sig (Normalized) Sig (Original) acetaminophen 325 mg / oxyCODONE hydrochloride 5 mg oral tablet (2 sources) Opioid Agonist Start: 06-22-2023 End: 06-23-2023 take 1 tablet by mouth three times daily as needed for pain Oxycodone-Acetamino phen 5-325 mg tablet Discontinued TAB PO June 22, 2023 1:00am June 23, 2023 10:40am [employer]: TAKE 1 TABLET BY MOUTH THREE TIMES A DAY NEEDED FOR PAIN Oral; Note: Source Status: Not-Takingundefined PRN; Refills: 0; Qty: 15 Each; Provider: EILEEN HERNANDEZ take 1 tablet by travon three times daily as needed for pain oxyCODONE-Acetaminophen 5-325 MG TAKE 1 TABLET BY MOUTH THREE TIMES A DAY NEEDED FOR PAIN Oral for 5 Days Not-Taking Problems Active Problems Problem Classification Problem Date Documented Date Episodic/Chronic Immunizations and screening for infectious disease (1 source) Encounter for screening for human papillomavirus (HPV); Translations: [ENC SCREENING HUMAN PAPILLOMAVIRUS] Onset: 01-21-2022 Episodic Other screening for suspected conditions (not mental disorders or infectious disease) (6 sources) Encounter for screening for malignant neoplasm of cervix; Translations: [Patient encounter status] Onset: 01-20-2022 Episodic Spondylosis; intervertebral disc disorders; [...] Results Test Name Value Interpretation Reference Range Facility HCG ( test) Ql (U)o n 07-18-2024 Interpretation and review of laboratory results Normal [facility] Preg Test, Ur Negative Negative [facility] Urinalysis macro (dipstick) panel (U)on 07-18-2024 Bilirubin, UA Negative Negative - 4(70) +++ mg/dL [facility] Blood, UA Negative Negative - 50 Dylon/mcL [facility] Clarity, UA Clear [facility] re Color, UA Yellow [facility] Glucose, UA Negative Negative - 1999(110) ++++ mg/dL [facility] Interpretation and review of laboratory results Abnormal [facility] Ketones, UA Negative Negative - 160(16) ++++ mg/dL [facility] Leukocytes, UA Trace Negative - 500+++ Telma/mcL [facility] Nitrite, UA Negative Negative - Positive [facility] pH, UA 6 5 - 9 [facility] Protein, UA Negative Negative - 1999(20) ++++ mg/dL [facility] Spec Grav, UA 1.015 1 - 1.03 [facility] Urobilinogen, UA 0.2 0.2 - 12 mg/dL [facility] Cytology Cervical or vaginal smear or scraping studyon 06-30-2023 [facility] PAP ACOG PANEL 2: 30 to 65on 01-27-2022 . . Normal [facility] Comment on above: Result Comment: Perf ormed at: BA Performed By: #### [id number] #### [facility] [address] [place] [address] Dr. Philip Todd DIAGNOSIS: Comment Normal [facility] Comment on above: Result Comment: NEGA TIVE FOR INTRAEPITHELIAL LESION OR MALIGNANCY. Performed at: BA Performed By: #### [id number] #### [facility] [address] [place] [address] Dr. Philip Todd HPV Aptima Negative Normal Negative [facility] Comment on above: Result Comment: This nucleic acid amplification test detects fourteen high-risk HPV types (16,18,31,33,35,39,45,51,52,56,58,59,66,68) without differentiation. Performed at: =G Performed By: #### [id number] #### [facility] [address] [place] [address] Dr. Philip Todd Methodology: Comment Normal [facility] Comment on above: Result Comment: This liquid based ThinPrep(R) pap test was screened with the use of an image guided system. Performed at: WB Performed By: #### [id number] #### [facility] [address] [place] [address] Dr. Philip Todd Note: Comment Normal [facility] Comment on above: Result Comment: The Pap smear is a screening test designed to aid in the detection of premalignant and malignant conditions of the uterine cervix. It is not a diagnostic procedure and should not be used as the sole means of detecting cervical cancer. Both false-positive and false-negative reports do occur. . Performed at: WB Performed By: #### [id number] #### [facility] [address] [place] [address] Dr. Philip Todd Performed by: Comment Normal [facility] Comment on above: Result Comment: Karthik Bhatt, Bottle Assembler (ASCP) Performed at: BA Performed By: #### [id number] #### [facility] [address] [place] [address] Dr. Philip Todd Specimen adequacy: Comment Normal [facility] Comment on above: Result Comment: Sati sfactory for evaluation. Endocervical and/or squamous metaplastic cells (endocervical component) are present. Performed at: BA Performed By: #### [id number] #### [facility] [address], [place] [address] Dr. Philip Todd Age Gdln ACOG Testing 30-65 Normal [facility] Comment on above: Performed By: #### [id number] #### [facility] [address], [place] [address] Dr. Philip Todd PREG HCG QUALon 09-11-2021 , QUAL Negative Normal NEGATIVE [facility] Comment on above: Performed By: #### P REG #### [facility] [address], [place] [address] Dr. Philip Todd MRI Lumbar Spine w/oon [...] by NITZA TIAN on 06/10/2021 1452 Normal [facility] Visitor Service Assistant CBC AUTO DIFFon 06-04-2021 BASO # 0.0 103/ul Normal 0.0-0.1 [facility] Comment on above: Performed By: #### C BC #### [facility] [address] [place] [address] Dr. Philip Todd Basophils/100 WBC (Bld) 0.4 % Normal 0.2-2.0 [facility] Comment on above: Performed By: #### C BC #### [facility] [address] [place] [address] Dr. Philip Todd EO # 0.2 103/ul Normal 0.0-0.7 [facility] Comment on above: Performed By: #### C BC #### [facility] [address] [place] [address] Dr. Philip Todd Eosinophils/100 WBC (Bld) 2.5 % Normal 0.9-7.0 [facility] Comment on above: Performed By: #### C BC #### [facility] [address] [place] [address] Dr. Philip Todd Erythrocyte distribution width (RBC) [Ratio] 12.5 % Normal 11.0-15.0 [facility] Comment on above: Performed By: #### C BC #### [facility] [address] [place] [address] Dr. Philip Todd Hematocrit (Bld) [Volume fraction] 42.1 % Normal 36.0-48.0 [facility] Comment on above: Performed By: #### C BC #### [facility] [address] [place] [address] Dr. Phliip Todd Hemoglobin (Bld) [Mass/Vol] 13.9 g/dL Normal 12.0-16.0 [facility] Comment on above: Performed By: #### C BC #### [facility] [address] [place] [address] Dr. Philip Todd IG # 0.01 10e3/ul Normal 0.00-0.03 [facility] Comment on above: Performed By: #### C BC #### [facility] [address] [place] [address] Dr. Philip Todd IG % 0.1 % Normal 0.0-0.5 [facility] Comment on above: Performed By: #### C BC #### [facility] [address] [place] [address] Dr. Philip Todd LYMPH # 2.5 103/ul Normal 1.2-3.8 [facility] Comment on above: Performed By: #### C BC #### [facility] [address] [place] [address] Dr. Philip Todd Lymphocytes/100 WBC (Bld) 34.7 % Normal 20.5-60.0 [facility] Comment on above: Performed By: #### C BC #### [facility] [address] [place] [address] Dr. Philip Todd MANUAL DIFF REQ NO Normal [facility] Comment on above: Performed By: #### C BC #### [facility] [address] [place] [address] Dr. Philip Todd MCH (RBC) [Entitic mass] 28.2 pg Normal 26.7-34.0 [facility] Comment on above: Performed By: #### C BC #### [facility] [address] [place] [address] Dr. Philip Todd MCHC (RBC) [Mass/Vol] 33.0 g/dL Normal 29.9-35.2 [facility] Comment on above: Performed By: #### C BC #### [facility] [address] [place] [address] Dr. Philip Todd MCV (RBC) [Entitic vol] 85.4 fL Normal 81.0-99.0 [facility] Comment on above: Performed By: #### C BC #### [facility] [address] [place] [address] Dr. Philip Todd MONO # 0.6 103/ul Normal 0.3-0.8 [facility] Comment on above: Performed By: #### C BC #### [facility] [address] [address] [address] Philip Todd Monocytes/100 WBC (Bld) 8.5 % Normal 1.7-12.0 [facility] Comment on above: Performed By: #### C BC #### [facility] [address] [address] [address] Philip Todd NEUT # 3.9 103/ul Normal 1.4-6.5 [facility] Comment on above: Performed By: #### C BC #### [facility] [address] [address] [address] Philip Todd Neutrophils/100 WBC (Bld) 53.8 % Normal 43.0-75.0 [facility] Comment on above: Performed By: #### C BC #### [facility] [address] [place] [address] Dr. Philip Todd Platelet mean volume (Bld) [Entitic vol] 10.0 fL Normal 9.5-13.5 [facility] Comment on above: Performed By: #### C BC #### [facility] [address] [place] [address] Dr. Philip Todd PLT 282 103/ul Normal 150-450 [facility] Comment on above: Performed By: #### C BC #### [facility] [address] [place] [address] Dr. Philip Todd RBC 4.93 106/ul Normal 4.20-5.40 [facility] Comment on above: Performed By: #### C BC #### [facility] [address] [place] [address] Dr. Philip Todd WBC 7.3 103/ul Normal 4.0-11.0 [facility] Comment on above: Performed By: #### C BC #### [facility] [address] [place] [address] Dr. Philip Tdod LIPID PROFILEon 06-04-2021 CHOL-HDL RATIO NORM SEE BELOW Normal [facility] Comment on above: Result Comment: 3.3 - 4.4 LOW RISK 4.4 - 7.1 AVERAGE RISK 7.1 - 11.0 MODERATE RISK >11.0 HIGH RISK Performed By: #### L IPID, BMP #### [facility] [address] [place] [address] Dr. Philip Todd Cholesterol [Mass/Vol] 200 mg/dL Normal <=200 [facility] Comment on above: Performed By: #### L IPID, BMP #### [facility] [address] [place] [address] Dr. Philip Todd Cholesterol in HDL [Mass/Vol] 52 mg/dL Normal [facility] Comment on above: Performed By: #### L IPID, BMP #### [facility] [address] [place] [address] Dr. Philip Todd Cholesterol in LDL [Mass/Vol] 131.6 mg/dL Normal [facility] Comment on above: Performed By: #### L IPID, BMP #### [facility] [address] [place] [address] Dr. Philip Todd Cholesterol.total/Ch olesterol in HDL [Mass ratio] 3.8 {ratio} Normal [facility] Comment on above: Performed By: #### L IPID, BMP #### [facility] [address] [place] [address] Dr. Philip Todd HDL NORMAL > or = 60 mg/dl - LO W CARDIOVASCULAR RISK <40 mg/dl - HIGH CARDIOVASCULAR RISK Normal [facility] Comment on above: Performed By: #### L IPID, BMP #### [facility] [address] [place] [address] Dr. Philip Todd LDL CALC NORMAL SEE BELOW Normal [facility] Comment on above: Result Comment: <100 mg/dl OPTIMAL 100 - 129 mg/dl NEAR OR ABOVE OPTIMAL 130 - 159 mg/dl BORDERLINE HIGH 160 - 189 mg/dl HIGH >190 mg/dl VERY HIGH Performed By: #### L IPID, BMP #### [facility] [address] [place] [address] Dr. Philip Todd Triglyceride [Mass/Vol] 82 mg/dL Normal <=150 [facility] Comment on above: Performed By: #### L IPID, BMP #### [facility] [address] [place] [address] Dr. Philip Todd VLDL CALC 16.4 mg/dL Normal [facility] Comment on above: Performed By: #### L IPID, BMP #### [facility] [address] [place] [address] Dr. Philip Todd PROF CHEM 8 (BAS METB)on Anion gap [Moles/Vol] 13.6 mmol/L Normal [facility] Comment on above: Performed By: #### L IPID, BMP #### [facility] [address] [place] [address] Dr. Philip Todd Calcium [Mass/Vol] 9.6 mg/dL Normal 8.4-10.2 [facility] Comment on above: Performed By: #### L IPID, BMP #### [facility] [address] [place] [address] Dr. Philip Todd Chloride [Moles/Vol] 103 mmol/L Normal 98-107 [facility] Comment on above: Performed By: #### L IPID, BMP #### [facility] [address] [place] [address] Dr. Philip Todd CO2 [Moles/Vol] 28.4 mmol/L Normal 22.0-30.0 [facility] Comment on above: Performed By: #### L IPID, BMP #### [facility] [address] [place] [address] Dr. Philip Todd Creatinine [Mass/Vol] 0.65 mg/dL Normal 0.52-1.04 [facility] Comment on above: Performed By: #### L IPID, BMP #### [facility] [address] [place] [address] Dr. Philip Todd EGFR-AF CANADIAN >60 Normal >=60 [facility] Comment on above: Performed By: #### L IPID, BMP #### [facility] [address] [place] [address] Dr. Philip Todd EGFR-NON AF CANADIAN >60 Normal >=60 [facility] Comment on above: Performed By: #### L IPID, BMP #### [facility] [address] [address] [address] Philip Todd Glucose [Mass/Vol] 94 mg/dL Normal 74-106 [facility] Comment on above: Performed By: #### L IPID, BMP #### [facility] [address] [address] [address] Philip Todd Potassium [Moles/Vol] 4.0 mmol/L Normal 3.4-5.0 [facility] Comment on above: Performed By: #### L IPID, BMP #### [facility] [address] [address] [address] Philip Todd Sodium [Moles/Vol] 141 mmol/L Normal 137-145 [facility] Comment on above: Performed By: #### L IPID, BMP #### [facility] [address] [address] [address] Philip Todd Urea nitrogen [Mass/Vol] 15.0 mg/dL Normal 7.0-17.0 [facility] Comment on above: Performed By: #### L IPID, BMP #### [facility] [address] [address] [address] Philip Todd Urea nitrogen/Creatinine [Mass ratio] 23.1 mg/mg Normal [facility] Comment on above: Performed By: #### L IPID, BMP #### [facility] [address] [address] [address] Philip Todd XR LSPINE 2_3 VIEWSon [...] by: HERNANDEZ MONSIVAIS Date: 2021-03-18 07:23 Normal [facility] Vital Signs Date Time Vital Sign Value Performing Clinician Facility 07-18-2024 10:01-0400 Body mass index (BMI) [Ratio] 25.89 kg/m2 Nena SIDHU Work Phone: [facility] 07-18-2024 10:01-0400 Body weight 62.14 kg Nena SIDHU Work Phone: [facility] 07-18-2024 10:01-0400 Diastolic blood pressure 70 mm[Hg] Nena SIDHU Work Phone: [facility] 07-18-2024 10:01-0400 Systolic blood pressure 120 mm[Hg] Nena SIDHU Work Phone: [facility] 07-09-2024 09:15-0400 Body height 154.94 cm [facility] 07-09-2024 09:15-0400 Body mass index (BMI) [Ratio] 25.9 kg/m2 [facility] 07-09-2024 09:15-0400 Body weight 62.14 kg [facility] 07-09-2024 09:15-0400 Diastolic blood pressure 81 mm[Hg] [facility] 07-09-2024 09:15-0400 Heart rate 77 /min [facility] 07-09-2024 09:15-0400 Systolic blood pressure 134 mm[Hg] [facility] 07-07-2021 11:00-0400 Body height 154.94 cm Louie Weiner Other [employer] Other 07-07-2021 11:00-0400 Body mass index (BMI) [Ratio] 27.39 kg/m2 Louie Weiner Other [facility] Other 07-07-2021 11:00-0400 Body weight 65.77 kg Louie Weiner Other [employer] Other Encounters Encounter Date Encounter Type Care Provider Facility Start: 07-18-2024 End: 07-18-2024 Bamboo flowsheet Nena SIDHU Work Phone: [facility] Start: 07-18-2024 End: 07-18-2024 Bamboo flowsheet Nena SIDHU Work Phone: [facility] Start: 07-18-2024 End: 07-18-2024 Patient encounter procedure Nena SIDHU Work Phone: [facility] Work Phone: Start: 07-18-2024 End: 07-18-2024 Periodic preventive med est patient 40-64yrs Nena SIDHU Work Phone: [facility] Comment on above: Well woman exam with routine gynecological exam; Breast cancer screening by mammogram Start: 07-09-2024 End: 07-09-2024 ambulatory [facility] Work Phone: Start: 07-09-2024 End: 07-09-2024 Encounter for general adult medical examination without abnormal findings [facility] Start: 07-09-2024 End: 07-09-2024 Patient encounter procedure [facility] Work Phone: Start: 07-05-2023 End: 07-05-2023 ambulatory NENA CARBAJAL Not Available Start: 06-23-2023 Patient encounter status [facility] Start: 01-20-2022 End: 01-20-[address] RAYSA FLORENTINO Facility:[facility] Start: 09-25-2021 End: 09-26-[address] DENITA WEINER Facility:[facility] Start: 09-11-2021 End: 09-11-2021 ambulatory NEELA DYKES Facility:[facility] Start: 07-17-2021 End: 07-18-[address] DENITA WEINER Facility:[facility] Start: 07-07-2021 End: 07-07-2021 ambulatory Louie Weiner Other [facility] [employer] Other Start: 07-07-2021 Office outpatient ne w [address] [facility] Start: 06-08-[address] DENITA WEINER Facil ity:[facility] Start: 02-18-2022 Encounter for genera l adult medical examination without abnormal findings DR DENITA WEINER [facility] Start: 06-04-2021 End: 06-05-[address] DENITA WEINER Facility:[facility] Start: 06-04-2021 End: 06-05-2021 Encounter for general adult medical examination without abnormal findings DR DENITA WEINER Facility:[facility] Start: 04-19-2021 End: 05-07-2021 [facility] Start: 03-19-2021 End: 04-17-2021 ambulatory HER[facility]NDEZ H [facility] Start: 03-18-2021 End: 03-18-[address] DENITA WEINER Facility:[facility] Start: 03-17-2021 End: 03-18-2021 [facility] Procedures Date Procedure Procedure Detail Performing Clinician Start: 07-18-2024 End: 07-18-2024 Urnls dip stick/tablet rgnt non-auto w/o micrscp Nena SIDHU Work Phone: Start: 06-30-2023 Cytp cerv/vag auto t hin layer prep mnl screen Esteban Leia DO Work Phone: Plan of Treatment Date Care Activity Detail Author Start: 07-18-2024 End: 09-17-2025 MG Breast - bilateral Screening Bilateral screening mammogram Imaging Routine Breast cancer screening by mammogram Expected: 07/18/2024 (Approximate), Expires: 09/17/2025 [facility] Work Phone: Comment on above: Expected: 07/18/2024 (Approximate), Expires: 09/17/2025 Start: 07-18-2024 End: 07-18-2024 Patient encounter procedure 07/18/2024 10:00 AM EDT Office Visit [facility] [address] [place] [address] Nena Carbajal PA [address] [place] [address] Arrived [facility] Comment on above: Arrived THIN PREP TIS PAP AN D HR HPV DNA THIN PREP TIS PAP AND HR HPV DNA Pathology and Cytology Routine Well woman exam with routine gynecological exam Ordered: 07/18/2024 [facility] Comment on above: Ordered: 07/18/2024 Payers Date Payer Category Payer [facility] [id number] 2023 Unknown [id number] 1983 Unknown [id number] 1983 Unknown [id number] .593 1983 Unknown [id number] .593 1983 Unknown [id number] .593 1983 Unknown [id number] .593 1983 Unknown [id number] .593 1983 Unknown [id number] .593 1983 Unknown [id number] .593 1983 Unknown [id number] .593 1983 Unknown [id number] .593 1983 Unknown [id number] .1259 1961 [facility] [id number] 1961 Self-pay [id number] Unknown [id number] Social History Date Type Detail Facility Unknown if ever smoked [facility] [employer] Other Start: 07-01-2023 End: 07-18-2024 Sex Assigned At [employer] [facility] [employer] Other Start: 06-20-2023 End: 07-01-2023 Tobacco smoking status NHIS Never smoked tobacco (finding) [facility] Start: 07-09-2024 Sex Female (finding) [facility] Start: 1985 Sex Assigned At Female F [facility] Start: 07-05-2023 End: 07-18-2024 Alcoholic beverage intake Current drinker of alcohol (finding) [facility] Start: 07-01-2023 End: 07-18-2024 History of Social function [facility] How often to you hav e a drink containing alcohol? Monthly or less [facility] How many standard drinks containing alcohol do you have on a typical day? 1 or 2 [facility] How often do you hav e 6 or more drinks on 1 occasion? Never [facility] Start: 07-01-2023 Alcohol Comment Caffeine intak e: 1-2 cups per day [facility] Start: 1985 Sex assigned at Not on file [facility] NEGATED: Highlighted row [facility] History of Present illness Narrative 07-18-2024 Justine Mills NP - 07/18/2024 10:00 AM EDT Note Date & Type Note Facility 07-18-2024 History of Presen t illness Narrative Reason for Appointment: Patient ID: Debra Bell is a 38 y.o. female who presents for Well Women Visit Patient presents today for Annual Exam. MEDICATIONS Current Outpatient Medications Medication Instructions MULTIPLE VITAMIN IV Every 24 hours ALLERGIES No Known Allergies PROBLEMS Active Ambulatory Problems Diagnosis Date Noted No Active Ambulatory Problems Resolved Ambulatory Problems Diagnosis Date Noted No Resolved Ambulatory Problems Past Medical History: Diagnosis Date Chronic mastoiditis of left side Left otitis media with effusion HISTORY PAST MEDICAL HISTORY SOCIAL HISTORY Past Medical History: Diagnosis Date Chronic mastoiditis of left side Left otitis media with effusion Social History Tobacco Use Smoking status: Never Smokeless tobacco: Not on file Substance Use Topics Alcohol use: Yes Comment: Caffeine intake: 1-2 cups per day Drug use: Not on file FAMILY HISTORY Family History Problem Relation Name Age of Onset Hypertension Mother Breast cancer Mother Osteoporosis Mother Heart disease Maternal Grandfather Heart disease Paternal Grandfather Diabetes Sibling SURGICAL HISTORY Past Surgical History: Procedure Laterality Date DILATION AND CURETTAGE OF UTERUS 2014 WISDOM TOOTH EXTRACTION 2001 REVIEW OF SYSTEMS Review of Systems: Review of Systems Constitutional: Negative. HENT: Negative. Eyes: Negative. Respiratory: Negative. Cardiovascular: Negative. Gastrointestinal: Negative. Genitourinary: Negative. Musculoskeletal: Negative. Skin: Negative. Neurological: Negative. All other systems reviewed and are negative. Hematological: Negative. Endocrine: Negative. Allergic/Immunologic: Negative. OBJECTIVE Objective: Physical Exam Constitutional: Appearance: Normal appearance. She is well-developed. Genitourinary: Vulva normal. Breasts: Breasts are soft. Right: Normal. Left: Normal. Cardiovascular: Rate and Rhythm: Normal rate and regular rhythm. Pulmonary: Effort: Pulmonary effort is normal. Breath sounds: Normal breath sounds. Abdominal: General: Bowel sounds are normal. There is no distension. Palpations: Abdomen is soft. Tenderness: There is no abdominal tenderness. There is no guarding or rebound. Musculoskeletal: General: No swelling. Normal range of motion. Right lower leg: No edema. Left lower leg: No edema. Neurological: Mental Status: She is alert and oriented to person, place, and time. Skin: General: Skin is warm and dry. Psychiatric: Mood and Affect: Mood normal. Behavior: Behavior normal. Vitals and nursing note reviewed. Exam conducted with a predictive maintenance specialist present. Vitals: Estimated body mass index is 25.89 kg/m as calculated from the following: Height as of 12/03/19: 5' 1 . Weight as of this encounter: 137 lb. BP: 120/70 Patient's last menstrual period was 06/26/2024. ASSESSMENT & PLAN ICD-10-CM 1. Well woman exam with routine gynecological exam Z01.419 THIN PREP TIS PAP AND HR HPV DNA POCT , urine manually resulted POCT urinalysis dipstick manually resulted 2. Breast cancer screening by mammogram Z12.31 Bilateral screening mammogram Bilateral screening mammogram Annual Exam: Patient presents today for an annual exam. Patient states she is doing well and has no complaints. Pap was obtained without difficulty. Orders Placed This Encounter Procedures Bilateral screening mammogram POCT , urine manually resulted POCT urinalysis dipstick manually resulted Follow Up: Patient is to return in one year for annual unless needed otherwise. Documented by Justine Mills NP on behalf of: THEA Hollingsworth documented in this encounter [facility] Healthcare Evaluation note 07-07-2021 Note Date & Type [...] back pain without sciatica (ICD-10 - M54.50) [facility] Other Evaluation note Note Date & Type Note Facility Evaluation note Diagnosis Onset Date Resolution Wellness examination acute Devin h 2024 9:00am [facility] Work Phone: Evaluation note Note Date & Type Note Facility Evaluation note Diagnosis Well woman exam with routine gynecological exam Routine gynecological examination Breast cancer screening by mammogram documented in this encounter [facility] Healthcare History general Narrative - Reported Note Date & Type Note Facility History general Narrative - Reported Type Surgical History wisdom teeth Surgical History D&C Hospitalization History childbirth [facility] Other Reason for visit Narrative Note Date & Type Note Facility Reason for visit Narrative Referral Denita Kapoor Lumbar Spondylolysis [facility] Other Summary Purpose Family History Relationship Condition Age at Onset Recorded Date/T nick brother Thien's disease Unknown Diabetes mellitus Unknown mother Hypertension Unknown Advance Directives Advance Directive Response Recorded Date/ Time Advance Directives No June 22 10:26am Chief Complaint and Reason for Visit Chief Complaint Admit Date wellness July 09, 2024 9:0 0am Reason for Visit Admit Date Wellness examination July 09, 2024 9: 00am Additional Source Comments INFORMATION SOURCE (unrecogn ized section and content) DATE CREATED AUTHOR 06/11/2021 [facility] dical Specialist DATE CREATED AUTHOR AUTHOR'S ORGANIZ ATION 01/27/2022 [facility] DATE CREATED AUTHOR AUTHOR'S ORGANIZ ATION 07/06/2023 [facility] dical Specialists EPIC Care Teams (unrecognized sec tion and content) Team Status: Active Member Role Status Dates Denita Weiner MD Primary Care Provider Active Team Status: Inactive Member Role Status Dates Denita Weiner MD Primary Care Provide r, Attending Provider Active Start: July 09, 2024 End: July 09, 2024 Production Line Technician Relationship Specialty Start Date End Date Denita Weiner MD [facility] [place] [id number] PCP - General Family Medicine 07/05/23 Production Line Technician Relationship Specialty Start Date End Date Denita Weiner MD [address] [place] [id number] PCP - General Family Medicine 07/05/23 Goals (unrecognized section and content) Goals may be documented in a n alternate section Reason for Visit (unrecogniz ed section and content) Reason Comments Well Women Visit FOR RECORDS PERTAINING TO PATIENTS WHO ARE [...] BE BASED ON THE PRIMARY CLINICAL RECORDS. Pricing Assistant [facility]. provides no warranty or guarantee of the accuracy or completeness of information in this document.
[2024-07-21 14:10] LABS: Age Gdln ACOG Testing Note (.); HPV Aptima Negative (Negative); IGP, Aptima HPV, rfx 16/18,45 Note (.)
== END 2024-07-18 14:54 | disposition home or self-care (01) ==
LOC: LAB 14:53
PROVIDERS: PCP Family Medicine; Visit Provider Physician Assistant
DX: Z01.419 Encounter for gynecological examination (general) (routine) without abnormal findings (principal)
CPT/HCPCS: 87624; 88175

== ENCOUNTER 2025-01-09 09:19 | Outpatient (OUT) | payer BC, SELFPAY ==
--- OUTSIDE RECORDS SUMMARY | 2025-01-09 09:21 | XMS_ITS | Encounter Summary ---
Author Organization [facility] Address [address] [place] [address] Care Team Providers Care Die Sinker Name Role Phone Denita Gracia MD Primary Care Provider [phone] Encounter Details Date Type Department Care Team (Late st Contact Info) Description 12/23/2023 Clinisync Result Encounter [facility] External Department Unsolicited Esteban Dupree, DO [address] [place] [address] Social History Tobacco Use Types Packs/Day Years Used Date Smoking Tobacco: Never Alcohol Use Standard Drinks/Week Comments Yes 0 (1 standard drink = 0.6 oz pure alcohol) Caffeine intake: 1-2 cups per day AUDIT-C Answer Date Recorded Q1: How often do you have a drink containing alc ohol? Monthly or less 07/01/2023 Q2: How many drinks containi ng alcohol do you have on a typical day when you are drinking? 1 or 2 07/01/2023 Q3: How often do you have si x or more drinks on one occasion? Never 07/01/2023 Comments No Sex and Gender Information Value Date Recorded Sex Assigned at Not on file Legal Sex Female 9:34 PM EDT Gender Identity Not on file Sexual Orientation Not on file documented as of this encounter Plan of Treatment Not on file documented as of this encounter Procedures Procedure Name Priority Date/Time Associated Diagnosis Comments MM TOMOSYNTHESIS SCREENING BI 12/23/2023 12:45 PM EDT documented in this encounter Results * MM TOMOSYNTHESIS SCREENING BI (12/23/2023 12:45 PM EDT) Anatomical Region Laterality Modality Other 12/23/2023 12:4 5 PM EDT Narrative 12/23/2023 12:46 PM EDT [address] [address] Mammography Report Signed Patient: HELLEN BELL MR#: [id number] : 1985 Acct:[id number] Age/Sex: 38 / F ADM Date: 12/21/23 Loc: MAMMO Attending Dr: Esteban Dupree D.O. Ordering Physician: Esteban Dupree D.O. Results: Date of Service: 12/21/23 Follow Up: Procedure(s): MM tomosynthesis screening BI Accession Number(s): [id number] cc: Denita Garcia M.D.; Esteban Dupree D.O. Patient Name: HELLEN BELL MR#: [id number] : 1985 Exam Date: 12/21/2023 Ordering Doctor: DR Esteban Dupree . RADIOLOGY REPORT PROCEDURE: MM TOMOSYNTHESIS SCREENING BI COMPARISON: None. INDICATIONS: breast cancer screening by mammogram Z12.31 Calculator Name NCI Breast Cancer Risk Assessment Tool 5 Year Breast Cancer Risk 1.20% Lifetime Breast Cancer Risk 20.40% Personal Breast Cancer No Personal Ovarian Cancer No Treatments None Family Cancers Mother with breast cancer at age 67; Uncle-maternal with lung cancer at age 55. LOCATION: [facility] BREAST COMPOSITION: The breasts are heterogeneously dense,which may obscure small masses. FINDINGS: DIAGNOSTIC CATEGORY 2--BENIGN FINDING: RIGHT BREAST: No significant suspicious finding. Posterior upper-outer quadrant small benign appearing lymph nodes. LEFT BREAST: No significant suspicious finding. 6 o'clock central breast benign-appearing lymph node. RECOMMENDATIONS: ROUTINE MAMMOGRAM AND CLINICAL EVALUATION IN 12 MONTHS. PLEASE NOTE: A NORMAL MAMMOGRAM DOES NOT EXCLUDE THE POSSIBILITY OF BREAST CANCER. A CLINICALLY SUSPICIOUS PALPABLE LUMP SHOULD BE BIOPSIED. Dictated by: Sravan Ch M.D. on 12/23/2023 at 12:43 Approved by: Sravan Ch M.D. on 12/23/2023 at 12:45 Dictated By: Sravan Ch M.D. Signed By: 12/23/23 1246 DD/ 1245 TD/TT: Human Factors Scientist: Procedure Note Radiology, Radiologist, MD - 12/23/2023 [place] [address] Mammography Report Signed Patient: HELLEN BELL MMR#: [id number] : 1985Acct:[id number] Age/Sex: 38 / FADM Date: 12/21/23 Loc: MAMMO Attending Dr: Esteban Dupree D.O. Ordering Physician: Esteban Dupree D.O.Results: Date of Service: 12/21/23Follow Up: Procedure(s): MM tomosynthesis screening BI Accession Number(s): [id number] cc: Denita Garcia M.D.; Esteban Dupree D.O. Patient Name: HELLEN BELL MR#: [id number] : 1985 Exam Date: 12/21/2023 Ordering Doctor: DR Esteban Dupree . RADIOLOGY REPORT PROCEDURE: MM TOMOSYNTHESIS SCREENING BI COMPARISON: None. INDICATIONS: breast cancer screening by mammogram Z12.31 Calculator Name NCI Breast Cancer Risk Assessment Tool 5 Year Breast Cancer Risk 1.20% Lifetime Breast Cancer Risk 20.40% Personal Breast Cancer No Personal Ovarian Cancer No Treatments None Family Cancers Mother with breast cancer at age 67; Uncle-maternalwith lung cancer at age 55. LOCATION: [facility] BREAST COMPOSITION: The breasts are heterogeneously dense,which may obscure small masses. FINDINGS: DIAGNOSTIC CATEGORY 2--BENIGN FINDING: RIGHT BREAST: No significant suspicious finding. Posterior upper-outer quadrant small benign appearing lymph nodes. LEFT BREAST: No significant suspicious finding. 6 o'clock central breast benign-appearing lymph node. RECOMMENDATIONS: ROUTINE MAMMOGRAM AND CLINICAL EVALUATION IN 12 MONTHS. PLEASE NOTE: A NORMAL MAMMOGRAM DOES NOT EXCLUDE THE POSSIBILITY OFBREAST CANCER. A CLINICALLY SUSPICIOUS PALPABLE LUMP SHOULD BE BIOPSIED. Dictated by: Sravan Ch M.D. on 12/23/2023 at 12:43 Approved by: Sravan Ch M.D. on 12/23/2023 at 12:45 Dictated By: Sravan Ch M.D. Signed By:12/23/23 1246 DD/ 1245 TD/TT: Human Factors Scientist: us Esteban Leia DO [facility] Final Result documented in this encounter Visit Diagnoses Not on filedocumented in this encounter Care Teams Die Sinker Relationship Specialty Start Date End Date Denita Garcia MD PCP - General Family Medicine 07/05/23 documented as of this encounter
--- OUTSIDE RECORDS SUMMARY | 2025-01-09 09:21 | XMS_ITS | Clinical Summary ---
Author Organization [facility] Healthcare Address [address] [place] [address] Care Team Providers Care Clinical Application Consultant Name Role Phone Denita Garcia MD Primary Care Provider [phone] Allergies No known active allergies Medications MULTIPLE VITAMIN IV 1 (one) time each day at the same time Active Family History Medical History Relation Name Comments Heart disease Maternal Grandfather Breast cancer Mother Hypertension Mother Osteoporosis Mother Heart disease Paternal Grandfather Diabetes Sibling Relation Name Status Comments Father Alive Maternal Grandfather Mother Alive Paternal Grandfather Sibling Social History Tobacco Use Types Packs/Day Years Used Date Smoking Tobacco: Never Tobacco Cessation:Counseling Given: Not Answered Alcohol Use Standard Drinks/Week Comments Yes 0 [...] on file Sexual Orientation Not on file Last Filed Vital Signs Vital Sign Reading Time Taken Comments Blood Pressure 120/70 07/18/2024 10:01 AM EDT Pulse - - Temperature - - Respiratory Rate - - Oxygen Saturation - - Inhaled Oxygen Concentration - - Weight 62.1 kg (137 lb) 07/18/2024 10:01 AM EDT Height 154.9 cm (5' 1 ) 12/03/2019 12:00 PM EDT Body Mass Index 25.89 12/03/2019 12:00 PM EDT Plan of Treatment Not on file Insurance BCBS Care Teams Clinical Application Consultant Relationship Specialty Start Date End Date Denita Garcia MD PCP - General Family Medicine 07/05/23
--- OUTSIDE RECORDS SUMMARY | 2025-01-09 09:21 | XMS_ITS | Encounter Summary ---
Author Organization [facility] Address [address] [place] [address] Care Team Providers Care Make Up Girl Name Role Phone Denita Garcia MD Primary Care Provider [phone] Encounter Details Date Type Department Care Team (Late st Contact Info) Description 07/24/2024 Orders Only [facility] [address] [place] [id number] Abbey Morales LPN [address] [place] [id number] Social History Tobacco Use Types Packs/Day Years [...] Procedure Name Priority Date/Time Associated Diagnosis Comments PAP SMEAR Routine 07/18/2024 12:00 AM EDT documented in this encounter Results * Pap Smear (07/18/2024 12:00 AM EDT) Swab Cervical swab / Unknown us Leia Nurse [facility] CYTOLOGY ORDERABLES Final Result EXTERNAL LAB documented in this encounter Visit Diagnoses Not on filedocumented in this encounter Care Teams Make Up Girl Relationship Specialty Start Date End Date Denita Garcia MD PCP - General Family Medicine 07/05/23 documented as of this encounter
--- NOTE | 2025-01-09 09:23 | MM_ITS ---
Patient Name: HELLEN BELL MR#: [id number] : 1985 Exam Date: 01/09/2025 Ordering Doctor: DR MILANA THOMAS . RADIOLOGY REPORT PROCEDURE: MM TOMOSYNTHESIS SCREENING BI COMPARISON: MM TOMOSYNTHESIS SCREENING BI, 12/21/2023. INDICATIONS: Screening Calculator Name NCI Breast Cancer Risk Assessment Tool 5 Year Breast Cancer Risk 1.30% Lifetime Breast Cancer Risk 20.30% Personal Breast Cancer No Personal Ovarian Cancer No Treatments None Family Cancers Mother with breast cancer at age 67; Uncle-maternal with lung cancer at age ~55. LOCATION: [facility] BREAST COMPOSITION: The breasts are heterogeneously dense, which may obscure small masses. FINDINGS: RIGHT BREAST: No significant suspicious finding. There is a similar focal asymmetry . LEFT BREAST: No significant suspicious finding. There is a similar focal asymmetry. DIAGNOSTIC CATEGORY 2--BENIGN FINDING. NO CHANGE FROM COMPARISON. RECOMMENDATIONS: ROUTINE MAMMOGRAM AND CLINICAL EVALUATION IN 12 MONTHS. Dictated by: Azam Barnett MD on 01/09/2025 at 11:27 Approved by: Azam Barnett MD on 01/09/2025 at 11:30
--- OUTSIDE RECORDS SUMMARY | 2025-01-09 09:27 | XMS_ITS | CCD ---
Author Organization [facility] Care Team Providers Care Jet Mechanic Name Role Phone Louie Weiner Unavailable FAWWAD, [...] REGINE, DR DENITA Silverio Primary Care Unavailable HAY, DR ANDREW Admitting Unavailable HAY, DR ANDREW Attending Unavailable THEA VELEZ Consulting Unavailable DONIS, NEELA Admitting Unavailable DONIS, NEELA Attending Unavailable WEINER, DR DENITA Silverio Primary Care Unavailable DONIS, [...] DENITA Silverio Attending Unavailable REGINE, DR DENITA Silveiro Primary Care Unavailable REGINE, DR DENITA Silverio Consulting Unavailable NELDAASIK, DR TABARES Admitting Unavailable KARANA PAULAK, DR TABARES Attending Unavailable REGINE, DR DENITA Silverio Primary Care Unavailable CHADD, DR TABARES Consulting Unavailable Denita Weiner MD Primary Care Provider NENA CARBAJAL Attending Unavailable Medications Current Medications Medication Drug Class(es) Dates Sig (Normalized) Sig (Original) MULTIPLE VITAMIN IV (4 sources) MULTIPLE VITAMIN IV 1 (one) time [...] Test Name Value Interpretation Reference Range Facility IGP,APTIMA HPV,AGE GDLNon AGE GDLN ACOG TESTING Note . [facility] Comment on above: TESTS RESULT FLAG UN ITS REF RANGE LAB Clinician Provided Cytology Information Source.............Cervix;Endocervix No. of containers..01 ThinPrep Vial Age Algo ACOG Amanda... 30-65 01 FLAG LEGEND: L-Low Normal,H-High Normal,LL-Alert Low,HH-Alert High <-Panic Low,>-Panic High,A-Abnormal,AA-Critical Abnormal Performed at: 01 =G [address] [place] [address] Laura Real MD, HPV APTIMA Negative Negative [facility] e Comment on above: This nucleic acid am plification test detects fourteen high- risk HPV types (16,18,31,33,35,39,45,51,52,56,58,59,66,68) without differentiation. Performed at: =G - [facility] [id number] Blemish Remover: Laura Real MD, Phone: [phone] Performed at: [facility] [address] [place], [place] [id number] Blemish Remover: Chi Salmon MD, Phone: [phone] IGP, APTIMA HPV, RFX 16/18,45 Note . [facility] Comment on above: TESTS RESULT FLAG UN ITS REF RANGE LAB DIAGNOSIS: 02 NEGATIVE FOR INTRAEPITHELIAL LESION OR MALIGNANCY. Specimen adequacy: 02 Satisfactory for evaluation. Endocervical and/or squamous metaplastic cells (endocervical component) are present. Performed by: Jerrica Lanier, Pile Driving Technician ([facility]) . 02 Note: Note 03 The Pap smear is a screening test designed to aid in the detection of premalignant and malignant conditions of the uterine cervix. It is not a diagnostic procedure and should not be used as the sole means of detecting cervical cancer. Both false-positive and false-negative reports do occur. Test Methodology: Note 03 This liquid based ThinPrep(R) pap test was screened with the use of an image guided system. HPV Genotype Reflex Note 02 Criteria not met, HPV Genotype not performed. FLAG LEGEND: L-Low Normal,H-High Normal,LL-Alert Low,HH-Alert High <-Panic Low,>-Panic High,A-Abnormal,AA-Critical Abnormal Performed at: 02 [facility] [address] [place] [address] Chi Salmon MD, 03 WB [facility] [address] [address] Laura Real MD, BRUSH-SPATULA CERVIX ENDOCERVIX [facility] HCG ( test) Ql (U)o n 07-18-2024 Interpretation and review of laboratory results Normal [facility] Preg Test, Ur Negative Negative [facility] Health care [facility] Urinalysis macro (dipstick) panel (U)on 07-18-2024 Bilirubin, UA Negative Negative - 4(70) +++ mg/dL [facility] Blood, UA Negative Negative - 50 Dylon/mcL [facility] Clarity, UA Clear [facility] Color, UA Yellow [facility] Glucose, UA Negative Negative - 1999(110) ++++ mg/dL [facility] Interpretation and review of laboratory results Abnormal [facility] Ketones, UA Negative Negative - 160(16) ++++ mg/dL [facility] Leukocytes, UA Trace Negative - 500+++ Telma/mcL [facility] Nitrite, UA Negative Negative - Positive [facility] pH, UA 6 5 - 9 [facility] Protein, UA Negative Negative - 1999(20) ++++ mg/dL [facility] Spec Grav, UA 1.015 1 - 1.03 [facility] [employer] [facility] Urobilinogen, UA 0.2 0.2 - 12 mg/dL [facility] [employer] [facility] Cytology Cervical or vaginal smear or scraping studyon 06-30-2023 [facility] PAP ACOG PANEL 2: 30 to 65on 01-27-2022 . . Normal [facility] Comment on above: Result Comment: Perf ormed at: BA Performed By: #### [id number] #### [facility] [address] [place] [address] Dr. Philip Todd DIAGNOSIS: Comment Normal [facility] Comment on above: Result Comment: NEGA TIVE FOR INTRAEPITHELIAL LESION OR MALIGNANCY. Performed at: BA Performed By: #### [id number] #### [facility] [address] [place] [address] Dr. Philip Todd HPV Aptima Negative Normal Negative [facility] Comment on above: Result Comment: This nucleic acid amplification test detects fourteen high-risk HPV types (16,18,31,33,35,39,45,51,52,56,58,59,66,68) without differentiation. Performed at: =G Performed By: #### [id number] #### [facility] [address] [place] [address] Dr. Philip Todd Methodology: Comment Normal [facility] Comment on above: Result Comment: This liquid based ThinPrep(R) pap test was screened with the use of an image guided system. Performed at: WB Performed By: #### [id number] #### [facility] [address] [place] [address] Dr. Philip Todd Note: Comment Normal [facility] Comment on above: Result Comment: The Pap smear is a screening test designed to aid in the detection of premalignant and malignant conditions of the uterine cervix. It is not a diagnostic procedure and should not be used as the sole means of detecting cervical cancer. Both false-positive and false-negative reports do occur. . Performed at: WB Performed By: #### [id number] #### [facility] [address] [place] [address] Dr. Philip Todd Performed by: Comment Normal [facility] Comment on above: Result Comment: Karthik Bhatt, Pile Driving Technician (AS[facility]) Performed at: BA Performed By: #### [id number] #### [facility] [address] [place] [address] Dr. Philip Todd Specimen adequacy: Comment Normal [facility] Comment on above: Result Comment: Sati sfactory for evaluation. Endocervical and/or squamous metaplastic cells (endocervical component) are present. Performed at: BA Performed By: #### [id number] #### [facility] [address] [place], [place] [address] Dr. Philip Todd Age Gdln ACOG Testing 30-65 Normal [facility] Comment on above: Performed By: #### 4 [id number] #### [facility] [address] [place], [place] [address] Dr. Philip Todd PREG HCG QUALon 09-11-2021 , QUAL Negative Normal NEGATIVE [facility] Comment on above: Performed By: #### P REG #### [facility] [address] [place], [place] [address] Dr. Philip Todd MRI Lumbar Spine w/oon [...] NITZA TIAN on 06/10/2021 1452 Normal [facility] Director Outpatient Services CBC AUTO DIFFon 06-04-2021 BASO # 0.0 103/ul Normal 0.0-0.1 [facility] Comment on above: Performed By: #### C BC #### [facility] [address] [place] [address] Dr. Philip Todd Basophils/100 WBC (Bld) 0.4 % Normal 0.2-2.0 [facility] Comment on above: Performed By: #### C BC #### [facility] [address] [place] [address] Dr. Philip Todd EO # 0.2 103/ul Normal 0.0-0.7 [facility] Comment on above: Performed By: #### C BC #### [facility] [address] [place] [address] Dr. Philip Todd Eosinophils/100 WBC (Bld) 2.5 % Normal 0.9-7.0 [facility] Comment on above: Performed By: #### C BC #### [facility] [address] [place] [address] Dr. Philip Todd Erythrocyte distribution width (RBC) [Ratio] 12.5 % Normal 11.0-15.0 [facility] Comment on above: Performed By: #### C BC #### [facility] [address] [place] [address] Dr. Philip Todd Hematocrit (Bld) [Volume fraction] 42.1 % Normal 36.0-48.0 [facility] Comment on above: Performed By: #### C BC #### [facility] [address] [place] [address] Dr. Philip Todd Hemoglobin (Bld) [Mass/Vol] 13.9 g/dL Normal 12.0-16.0 [facility] Comment on above: Performed By: #### C BC #### [facility] [address] [place] [address] Dr. Philip Todd IG # 0.01 10e3/ul Normal 0.00-0.03 [facility] Comment on above: Performed By: #### C BC #### [facility] [address] [place] [address] Dr. Philip Todd IG % 0.1 % Normal 0.0-0.5 [facility] Comment on above: Performed By: #### C BC #### [facility] [address] [place] [address] Dr. Philip Todd LYMPH # 2.5 103/ul Normal 1.2-3.8 [facility] Comment on above: Performed By: #### C BC #### [facility] [address] [place] [address] Dr. Philip Todd Lymphocytes/100 WBC (Bld) 34.7 % Normal 20.5-60.0 [facility] Comment on above: Performed By: #### C BC #### [facility] [address] [place] [address] Dr. Philip Todd MANUAL DIFF REQ NO Normal [facility] Comment on above: Performed By: #### C BC #### [facility] [address] [place] [address] Dr. Philip Todd MCH (RBC) [Entitic mass] 28.2 pg Normal 26.7-34.0 [facility] Comment on above: Performed By: #### C BC #### [facility] [address] [place] [address] Dr. Philip Todd MCHC (RBC) [Mass/Vol] 33.0 g/dL Normal 29.9-35.2 [facility] Comment on above: Performed By: #### C BC #### [facility] [address] [place] [address] Dr. Philip Todd MCV (RBC) [Entitic vol] 85.4 fL Normal 81.0-99.0 [facility] Comment on above: Performed By: #### C BC #### [facility] [address] [place] [address] Dr. Philip Todd MONO # 0.6 103/ul Normal 0.3-0.8 [facility] Comment on above: Performed By: #### C BC #### [facility] [address] [place] [address] [address] Philip Todd Monocytes/100 WBC (Bld) 8.5 % Normal 1.7-12.0 [facility] Comment on above: Performed By: #### C BC #### [facility] [address] [place] [address] [address] Philip Todd NEUT # 3.9 103/ul Normal 1.4-6.5 [facility] Comment on above: Performed By: #### C BC #### [facility] [address] [place] [address] [address] Philip Todd Neutrophils/100 WBC (Bld) 53.8 % Normal 43.0-75.0 [facility] Comment on above: Performed By: #### C BC #### [facility] [address] [place] [address] Dr. Philip Todd Platelet mean volume (Bld) [Entitic vol] 10.0 fL Normal 9.5-13.5 [facility] Comment on above: Performed By: #### C BC #### [facility] [address] [place] [address] Dr. Philip Todd PLT 282 103/ul Normal 150-450 [facility] Comment on above: Performed By: #### C BC #### [facility] [address] [place] [address] Dr. Philip Todd RBC 4.93 106/ul Normal 4.20-5.40 [facility] Comment on above: Performed By: #### C BC #### [facility] [address] [place] [address] Dr. Philip Todd WBC 7.3 103/ul Normal 4.0-11.0 [facility] Comment on above: Performed By: #### C BC #### [facility] [address] [place] [address] Dr. Philip Todd LIPID PROFILEon 06-04-2021 CHOL-HDL RATIO NORM SEE BELOW Normal [facility] Comment on above: Result Comment: 3.3 - 4.4 LOW RISK 4.4 - 7.1 AVERAGE RISK 7.1 - 11.0 MODERATE RISK >11.0 HIGH RISK Performed By: #### L IPID, BMP #### [facility] [address] [place] [address] Dr. Philip Todd Cholesterol [Mass/Vol] 200 mg/dL Normal <=200 [facility] Comment on above: Performed By: #### L IPID, BMP #### [facility] [address] [place] [address] Dr. Philip Todd Cholesterol in HDL [Mass/Vol] 52 mg/dL Normal [facility] Comment on above: Performed By: #### L IPID, BMP #### [facility] [address] [place] [address] Dr. Philip Todd Cholesterol in LDL [Mass/Vol] 131.6 mg/dL Normal [facility] Comment on above: Performed By: #### L IPID, BMP #### [facility] [address] [place] [address] Dr. Philip Todd Cholesterol.total/Ch olesterol in HDL [Mass ratio] 3.8 {ratio} Normal [facility] Comment on above: Performed By: #### L IPID, BMP #### [facility] [address] [place] [address] Dr. Philip Todd HDL NORMAL > or = 60 mg/dl - LO W CARDIOVASCULAR RISK <40 mg/dl - HIGH CARDIOVASCULAR RISK Normal [facility] Comment on above: Performed By: #### L IPID, BMP #### [facility] [address] [place] [address] Dr. Philip Todd LDL CALC NORMAL SEE BELOW Normal [facility] Comment on above: Result Comment: <100 mg/dl OPTIMAL 100 - 129 mg/dl NEAR OR ABOVE OPTIMAL 130 - 159 mg/dl BORDERLINE HIGH 160 - 189 mg/dl HIGH >190 mg/dl VERY HIGH Performed By: #### L IPID, BMP #### [facility] [address] [place] [address] Dr. Philip Todd Triglyceride [Mass/Vol] 82 mg/dL Normal <=150 [facility] Comment on above: Performed By: #### L IPID, BMP #### [facility] [address] [place] [address] Dr. Philip Todd VLDL CALC 16.4 mg/dL Normal [facility] Comment on above: Performed By: #### L IPID, BMP #### [facility] [address] [place] [address] Dr. Philip Todd PROF CHEM 8 (BAS METB)on Anion gap [Moles/Vol] 13.6 mmol/L Normal [facility] Comment on above: Performed By: #### L IPID, BMP #### [facility] [address] [place] [address] Dr. Philip Todd Calcium [Mass/Vol] 9.6 mg/dL Normal 8.4-10.2 [facility] Comment on above: Performed By: #### L IPID, BMP #### [facility] [address] [place] [address] Dr. Philip Todd Chloride [Moles/Vol] 103 mmol/L Normal 98-107 [facility] Comment on above: Performed By: #### L IPID, BMP #### [facility] [address] [place] [address] Dr. Philip Todd CO2 [Moles/Vol] 28.4 mmol/L Normal 22.0-30.0 [facility] Comment on above: Performed By: #### L IPID, BMP #### [facility] [address] [place] [address] Dr. Philip Todd Creatinine [Mass/Vol] 0.65 mg/dL Normal 0.52-1.04 [facility] Comment on above: Performed By: #### L IPID, BMP #### [facility] [address] [place] [address] Dr. Philip Todd EGFR-AF BAHAMIAN >60 Normal >=60 [facility] Comment on above: Performed By: #### L IPID, BMP #### [facility] [address] [place] [address] Dr. Philip Todd EGFR-NON AF BAHAMIAN >60 Normal >=60 [facility] Comment on above: Performed By: #### L IPID, BMP #### [facility] [address] [place] [address] [address] Philip Todd Glucose [Mass/Vol] 94 mg/dL Normal 74-106 [facility] Comment on above: Performed By: #### L IPID, BMP #### [facility] [address] [place] [address] [address] Philip Todd Potassium [Moles/Vol] 4.0 mmol/L Normal 3.4-5.0 [facility] Comment on above: Performed By: #### L IPID, BMP #### [facility] [address] [place] [address] [address] Philip Todd Sodium [Moles/Vol] 141 mmol/L Normal 137-145 [facility] Comment on above: Performed By: #### L IPID, BMP #### [facility] [address] [place] [address] [address] Philip Todd Urea nitrogen [Mass/Vol] 15.0 mg/dL Normal 7.0-17.0 [facility] Comment on above: Performed By: #### L IPID, BMP #### [facility] [address] [place] [address] [address] Philip Todd Urea nitrogen/Creatinine [Mass ratio] 23.1 mg/mg Normal [facility] Comment on above: Performed By: #### L IPID, BMP #### [facility] [address] [place] [address] [address] Philip Todd XR LSPINE 2_3 VIEWSon [...] by: HERNANDEZ MONSIVAIS Date: 2021-03-18 07:23 Normal [facility] Vital Signs Date Time Vital Sign Value Performing Clinician Facility 07-18-2024 10:01-0400 Body mass index (BMI) [Ratio] 25.89 kg/m2 Nena SIDHU Work Phone: [facility] 07-18-2024 10:01-0400 Body weight 62.14 kg Nena SIDHU Work Phone: [facility] 07-18-2024 10:01-0400 Diastolic blood pressure 70 mm[Hg] Nena SIDHU Work Phone: [facility] 07-18-2024 10:01-0400 Systolic blood pressure 120 mm[Hg] Nena SIDHU Work Phone: [facility] 07-09-2024 09:15-0400 Body height 154.94 cm [facility] 07-09-2024 09:15-0400 Body mass index (BMI) [Ratio] 25.9 kg/m2 [facility] 07-09-2024 09:15-0400 Body weight 62.14 kg [facility] 07-09-2024 09:15-0400 Diastolic blood pressure 81 mm[Hg] [facility] 07-09-2024 09:15-0400 Heart rate 77 /min [facility] 07-09-2024 09:15-0400 Systolic blood pressure 134 mm[Hg] [facility] 07-07-2021 11:00-0400 Body height 154.94 cm Louie Weiner Other [facility] Other 07-07-2021 11:00-0400 Body mass index (BMI) [Ratio] 27.39 kg/m2 Louie Weiner Other [facility] Other 07-07-2021 11:00-0400 Body weight 65.77 kg Louie Weiner Other [facility] Other Encounters Encounter Date Encounter Type Care Provider Facility Start: 07-18-2024 End: 07-18-2024 Bamboo flowsheet Nena SIDHU Work Phone: [facility] Start: 07-18-2024 End: 07-23-2024 Bamboo flowsheet Nena SIDHU Work Phone: [facility] Start: 07-18-2024 End: 07-23-2024 Clinis[facility] Result Encounter Nena SIDHU Work Phone: [facility] Unsolicited Start: 07-18-2024 End: 07-18-2024 Patient encounter procedure Nena SIDHU Work Phone: [facility] Work Phone: Start: 07-18-2024 End: 07-18-2024 Periodic preventive med est patient 40-64yrs Nena SIDHU Work Phone: [facility] Comment on above: Well woman exam with routine gynecological exam; Breast cancer screening by mammogram Start: 07-18-2024 End: 07-18-2024 ambulatory NENA CARBAJAL Not Available Start: 07-09-2024 End: 07-09-2024 ambulatory [facility] Work Phone: Start: 07-09-2024 End: 07-09-2024 Encounter for general adult medical examination without abnormal findings [facility] Start: 07-09-2024 End: 07-09-2024 [facility] Start: 06-23-2023 Patient encounter status [facility] Start: 01-20-2022 End: 01-20-[address] RAYSA FLORENTINO Facility:[facility] Start: 09-25-2021 End: 09-26-[address] DENITA WEINER Facility:[facility] Start: 09-11-2021 End: 09-11-2021 ambulatory NEELA DYKES Facility:[facility] Start: 07-17-2021 End: 07-18-[address] DENITA WEINER Facility:[facility] Start: 07-07-2021 End: 07-07-2021 ambulatory Louie Weiner Other [facility] Other Start: 07-07-2021 Office outpatient ne w 30 minutes Louie Weiner [facility] Start: 06-08-[address] DENITA WEINER Facil ity:[facility] Start: 06-05-2021 Encounter for genera l adult medical examination without abnormal findings DR DENITA WEINER [facility] Start: 06-04-2021 End: 06-05-[address] DENITA WEINER Facility:[facility] Start: 06-04-2021 End: 06-05-2021 Encounter for general adult medical examination without abnormal findings DR DENITA WEINER Facility:[facility] Start: 04-19-2021 End: 05-07-2021 ambulatory SHAIKH Chioma ARELLANO Facility:[facility] Start: 03-19-2021 End: 04-17-2021 ambulatory SHAIKH Chioma ARELLANO Facility:[facility] Start: 03-18-2021 End: 03-18-[address] DENITA WEINER Facility:[facility] Start: 03-17-2021 End: 03-18-2021 ambulatory HERNANDEZ Chioma ARELLANO Facility: Procedures Date Procedure Procedure Detail Performing Clinician Start: 07-18-2024 End: 07-18-2024 Urnls dip stick/tablet rgnt non-auto w/o micrscp Nena [facility] Work Phone: Start: 07-18-2024 IGP,APTIMA HPV,AGE GDLN Nena [facility] Work Phone: Start: 06-30-2023 Cytp [...] EDT Office Visit [facility] [address] [place] [id number] Nena Carbajal PA [address] [place] [address] [place] [address] Arrived [facility] Comment on above: Arrived THIN PREP TIS PAP AN D HR HPV DNA THIN PREP TIS PAP AND HR HPV DNA Pathology and Cytology Routine Well woman exam with routine gynecological exam Ordered: 07/18/2024 [facility] Comment on above: Ordered: 07/18/2024 Payers Date Payer Category Payer [id number] 2023 Unknown [id number] 1983 Unknown [id number] [id number] .593 1983 Unknown [id number] [id number] .593 1983 Unknown [id number] 2.16.840.1.157038.3.579.2 .593 1983 Unknown [id number] 2.16.840.1.667990.3.579.2 .593 1983 Unknown [id number] 2.16.840.1.328654.3.579.2 .593 1983 Unknown [id number] 2.16.840.1.090997.3.579.2 .593 1983 Unknown [id number] 2.16.840.1.591410.3.579.2 .593 1983 Unknown [id number] 2.16.840.1.115218.3.579.2 .593 1983 Unknown [id number] 2.16.840.1.857763.3.579.2 .593 1983 Unknown [id number] 2.16.840.1.720006.3.579.2 .593 1983 Unknown [id number] 2.16.840.1.416268.3.579.2 .1259 1959 [facility] [id number] 1961 Self-pay [id number] Unknown [id number] Social History Date Type Detail Facility Unknown if ever smoked [facility] Other Start: 07-01-2023 End: 07-18-2024 Sex Assigned At [id number] Other Start: 06-20-2023 End: 07-01-2023 Tobacco smoking status NHIS Never smoked tobacco (finding) [facility] Start: 07-09-2024 Sex Female (finding) [facility] Start: 1985 Sex Assigned At Female F [facility] Start: 07-05-2023 End: 07-18-2024 Alcoholic beverage [...] file N [facility] NEGATED: Highlighted row [facility] History of Present illness Narrative 07-18-2024 Justine Mills, KELLY - 07/18/2024 10:00 AM EDT Note Date [...] Laterality Date DILATION AND CURETTAGE OF UTERUS 2015 WISDOM TOOTH EXTRACTION 2001 REVIEW OF SYSTEMS [...] nursing note reviewed. Exam conducted with a dance hall hostess present. Vitals: Estimated body mass index is [...] of: THEA Hollingsworth documented in this encounter [facility] Evaluation note 07-07-2021 Note Date & Type [...] back pain without sciatica (ICD-10 - M54.50) [facility] Other Evaluation note Note Date & Type Note Facility Evaluation note Diagnosis Onset Date Resolution Wellness examination acute Devin h 2024 9:00am [facility] Work Phone: Evaluation note Note Date & Type Note Facility Evaluation note Diagnosis Well woman exam with routine gynecological exam Routine gynecological examination Breast cancer screening by mammogram documented in this encounter [facility] History general Narrative - Reported Note Date & Type Note Facility History general Narrative - Reported Type Surgical History wisdom teeth Surgical History D&C Hospitalization History childbirth [id number] Other Reason for visit Narrative Note Date & Type Note Facility Reason for visit Narrative Referral Denita Kapoor Lumbar Spondylolysis [id number] Other Summary Purpose Family History Relationship Condition Age at Onset Recorded Date/T nick brother Lorain's disease Unknown Diabetes mellitus Unknown mother Hypertension [...] section and content) DATE CREATED AUTHOR 06/11/2021 [facility] Specialist DATE CREATED AUTHOR AUTHOR'S ORGANIZ ATION 01/27/2022 [facility] DATE CREATED AUTHOR AUTHOR'S ORGANIZ ATION 07/21/2024 [facility] d[facility] Specialists EPIC Care Teams (unrecognized sec tion and content) Team Status: Active Member Role Status Dates Denita Weiner MD Primary Care Provider Active Team Status: Inactive Member Role Status Dates Denita Weiner MD Primary Care Provide r, Attending Provider Active Start: July 09, 2024 End: July 09, 2024 [employer] Relationship Specialty Start Date End Date Denita Weiner MD [address] [place] [id number] PCP - General Family Medicine 07/05/23 [employer] Relationship Specialty Start Date End Date Denita Weiner MD [address] [place] [id number] PCP - General Family Medicine 07/05/23 [employer] Relationship Specialty Start Date End Date Denita Weiner MD [address] [place] [id number] PCP - General Family Medicine 07/05/23 Goals [...] BE BASED ON THE PRIMARY CLINICAL RECORDS. [employer] provides no warranty or guarantee of the accuracy or completeness of information in this document.
== END 2025-01-09 09:20 | disposition home or self-care (01) ==
LOC: MAMMO 09:19
PROVIDERS: PCP Family Medicine; Visit Provider Obstetrics & Gynecology
DX: Z12.31 Encounter for screening mammogram for malignant neoplasm of breast (principal); Z80.3 Family history of malignant neoplasm of breast; Z80.1 Family history of malignant neoplasm of trachea, bronchus and lung
CPT/HCPCS: 77063; 77067